=== PATIENT | female | born 1985 | race Caucasian/White ===

== ENCOUNTER → 2018-12-12 | Outpatient (REF) | payer OTHER | LOC: M SFHCPLAZ 19:25 | PROVIDERS: ATTEND Dermatology | DX: D22.62 Melanocytic nevi of left upper limb, including shoulder (principal) ==

== ENCOUNTER → 2019-11-25 | Outpatient (CLI) | payer OTHER ==
--- NOTE | 2019-12-17 15:12 | REP ---
LEFT WRIST SERIES CLINICAL: Contusion. Pain with recent fall. TECHNIQUE: AP, lateral, and bilateral oblique views of the left wrist. FINDINGS: Oblique and lateral views demonstrate a somewhat fragmented appearance involving probably the pisiform bone along the posterior aspect of the wrist. This may represent acute versus chronic fracture/injury and requires correlation with physical examination and mechanism of injury. Examination is otherwise unremarkable. The remainder of the carpal bones appear intact. The remainder of the visualized osseous structures are normal. The surrounding soft tissues are gross unremarkable. IMPRESSION: Cannot exclude acute versus chronic injury along the posterior aspect of the wrist likely involving the pisiform bone. This may represent an old injury or acute injury and correlation is required. SIMONED
== END ==
LOC: M WUC 10:42
PROVIDERS: ATTEND Physician Assistant
DX: S60.212A Contusion of left wrist, initial encounter (principal); X58.XXXA Exposure to other specified factors, initial encounter; Y92.89 Other specified places as the place of occurrence of the external cause

== ENCOUNTER → 2020-11-12 | Outpatient (CLI) | payer OTHER ==
--- NOTE | 2020-11-18 09:19 | REP ---
INDICATION: PERSON CONSULTING FOR EXPLANATION OF EXAM OR TEST FINDING COMPARISON: None. TECHNIQUE: Supine view of the abdomen and pelvis. FINDINGS: Bowel gas pattern is nonspecific and without obstruction or perforation. No organomegaly. No foreign body. Small calcifications in the pelvis likely represent phleboliths. Skeletal structures intact. IMPRESSION: Normal abdominal radiograph. <Electronically signed by Erich Costa > 11/18/20 0916
== END ==
LOC: M LAB 16:20
PROVIDERS: ATTEND Nurse Practitioner Family
DX: R19.7 Diarrhea, unspecified (principal); R10.9 Unspecified abdominal pain; Z71.2 Person consulting for explanation of examination or test findings

== ENCOUNTER → 2020-11-18 | Outpatient (REF) | payer OTHER ==
[~2020-11-18] MED LIST: CLAR10CA3 PO; CVS1CAP2 PO; PROAAER10 INH; [UNRECOGNIZED DRUG - OTHER] PO
== END ==
LOC: M LAB REF 15:22
PROVIDERS: ATTEND Nurse Practitioner Family
DX: R19.7 Diarrhea, unspecified (principal); R10.9 Unspecified abdominal pain

== ENCOUNTER → 2021-01-08 | Outpatient (CLI) | payer OTHER | LOC: M LABSMTC 10:31 | PROVIDERS: ATTEND Anesthesiology | DX: Z01.812 Encounter for preprocedural laboratory examination (principal); Z20.822 Contact with and (suspected) exposure to COVID-19 ==

== ENCOUNTER 2021-01-13 10:38 | Day surgery (SDC) | payer OTHER ==
[~2021-01-13] VITALS: Ht 157.5 cm; Wt 58.9 kg
[~2021-01-13 10:38] MED LIST changes: +NS 1,000 ML IV ONE
--- OUTSIDE RECORDS SUMMARY | 2021-01-13 10:42 | CCD | Continuity of Care Document ---
Author Author Hetal SILVA V [facility] Organization Unknown Address [address] [place] [address] Phone [phone] Care Team Providers Care Vat Skimmer Name Role Phone Kaylee Silva PASCALE AUTM [phone] Problems Description No Information Available Social History Type Date Description Comments Sex Unknown Tobacco Use Start: Unknown Never Used Smokeless Tobacco ETOH Use Denies alcohol use Tobacco Use Start: Unknown Patient has never smoked Recreational Drug Use Never Used Drugs Seat Belt/Car Seat Always uses seat belt Guns in Home No Smoke Alarms Yes Smoke Alarms Carbon Monoxide Detector: Yes Allergies, Adverse Reactions, Alerts Active Allergies Criticality Reaction | Severity Comments Date Peanut-containing Drug Products Unable to assess criticality Allergic asthma, Anaphylaxis 09/28/2020 Cat Dander Unable to assess criticality Allergic asthma, Contact dermatitis 09/28/2020 Seasonal Unable to assess criticality Allergic asthma, Contact dermatitis 09/28/2020 Iodine I 131 Tositumomab Unable to assess criticality Contact derma titis 09/28/2020 Nuts Unable to assess criticality Allergic as thma, Anaphylaxis, Contact dermatitis 09/28/2020 Cefaclor Unable to assess criticality 12/03/2020 Medications Active Medications SIG Qnty Indications Ordering Provide r Date Benzonatate 100mg Capsules take 1 cap by mouth every 8 hours as needed for cough 30jaz Johnston MD 12/03/2020 Esomeprazole Magnesium 40mg Capsul es DR 1 by mouth every day, take 1/2 hour before largest meal of day 30jaz Johnston MD 11/12/2020 Ergocalciferol 1.25mg (73696 Ut) C apsules take 1 cap by mouth once a week as directed 12jaz Johnston MD 10/21/2020 Benadryl Allergy 25mg Tablets As needed Unknown Probiotic 250mg Capsules 2 da bhanu Unknown Sudafed 30mg Tablets As neede d [facility] Albuterol Sulfate (2 .5mg/3ML) 0.083% Nebulizer As needed [facility], [facility] Epinephrine 0.3mg/0. 3ML Solution Auto-Inject Unknown Immunizations Description No Information Available Vital Signs Date Vital Result Comment 12/03/2020 1:54pm BP Systolic 106 mmHg BP Diastolic 56 mmHg Heart Rate 93 /min Body Temperature 97.3 F Respiratory Rate 16 /min O2 % BldC Oximetry 100 % Weight 127.50 lb Weight 57.834 kg Height 62 inches 5'2" BMI (Body Mass Index) 23.3 kg/m2 BSA (Body Surface Area) 1.58 m2 11/12/2020 2:35pm BP Systolic 116 mmHg BP Diastolic 72 mmHg Heart Rate 71 /min Body Temperature 97.2 F Respiratory Rate 16 /min O2 % BldC Oximetry 98 % Weight 129.25 lb Weight 58.628 kg Height 62 inches 5'2" BMI (Body Mass Index) 23.6 kg/m2 BSA (Body Surface Area) 1.59 m2 Results Test Acquired Date Facility Test Result H/L Range Note Laboratory test finding 12/03/2020 [facility] Coronavirus Covid-19 Not Detected Not Detected 1 Laboratory test finding 11/12/2020 [facility] Coronavirus Covid-19 Not Detected Not Detected 2 CBC W/Automated Diff 10/19/2020 [facility] CBC W/Automated Diff (SEE NOTE) 3, 4 WBC 8.3 10^3/uL 4.2 - 11.0 RBC 4.51 10^6/uL 4.20 - 5.40 Hemoglobin 15.0 g/dL 12.0 - 16.0 Hematocrit 44.8 % 37.0 - 47.0 MCV 99.3 fL 81.0 - 101 MCH 33.3 pg 27.0 - 34.0 MCHC 33.5 g/dL 31.0 - 36.0 RDW 12.4 % 11.5 - 14.5 Platelets 300 10^3/uL 150 - 450 MPV 10.1 fL 7.4 - 10.4 Neut 48.7 % 37.0 - 80.0 Lymph 41.0 % High 25.0 - 40.0 [place] 6.7 % 3.0 - 8.0 Eos 2.9 % 0.0 - 7.0 Baso 0.5 % 0.0 - 2.5 %Ig 0.2 % High 0.0 - 0.0 %NRBC 0.0 % 0.0 - 0.0 #Neut 4.06 10^3/uL 2.00 - 6.90 #Lymph 3.42 10^3/uL High 0.60 - 3.40 #[place] 0.56 10^3/uL 0.00 - 0.90 #Eos 0.24 10^3/uL 0.00 - 0.70 #Baso 0.04 10^3/uL 0.00 - 0.20 #Ig 0.02 10^3/uL 0.00 - 0.10 #NRBC 0.00 10^3/uL 0.00 - 0.00 Manual Diff NOT INDICATED RBC Morph NOT INDICATED Comprehensive Metabolic Panel 10/19/2020 [facility] Comprehensive Metabo (SEE NOTE) 5 Sodium 141 mEq/L 134 - 153 Potassium 4.2 mEq/L 3.6 - 5.0 Chloride 107 mEq/L 98 - 107 Co2 26 mEq/L 22 - 30 Glucose 91 mg/dL 70 - 99 BUN 16 mg/dL 7 - 21 Creatinine 0.9 mg/dL 0.7 - 1.5 BUN/Creat 18 8 - 27 Total Protein 7.3 g/dL 6.3 - 8.2 Albumin 4.3 g/dL 3.9 - 5.0 Globulin 3.0 GM/DL 2.4 - 3.2 A/G Ratio 1.4 0.8 - 2.0 Calcium 9.3 mg/dL 8.4 - 10.2 Total Bili <0.7 mg/dL 0.2 - 1.3 Alkaline Phos 67 U/L 38 - 126 Sgot/Ast 19 U/L 5 - 40 SGPT/Alt 20 U/L 7 - 56 Anion Gap 8.0 mmol/L 8.0 - 16.0 Age 35 yrs Non-Aa GFR >60 mL/min Afr Amer GFR >60 mL/min 6 Cve Panel 10/19/2020 [facility] Cve Panel (SEE NOTE) 7 Cholesterol 205 mg/dL High 131 - 200 Triglycerides 66 mg/dL 35 - 160 HDL 77 mg/dL 29 - 86 LDL 128 mg/dL 65 - 175 Risk Factor 2.7 Low 3.2 - 4.4 LDL/HDL 1.66 1.47 - 3.22 8 Laboratory test finding 10/19/2020 [facility] Hg[facility] 4.5 % 4.4 - 6.1 9 TSH Highly Sensitive 0.72 uIU/mL 0.47 - 5.01 Vitamin D (25-Hydroxy) 29 NG/ML 10 FSH Serum 5.6 mIU/mL 11 LH 8.2 mIU/mL 12 Estradiol Serum 153.0 pg/mL 13 T-Tranglutaminase Iga <2 U/mL 0-3 14 1 This nucleic acid amplificat ion test was developed and its performance characteristics determined by [employer]. Nucleic acid amplification tests include RT-PCR and TMA. This test has not been FDA cleared or approved. This test has been authorized by FDA under an Emergency Use Authorization (EUA). This test is only authorized for the duration of time the declaration that circumstances exist justifying the authorization of the emergency use of in vitro diagnostic tests for detection of SARS-CoV-2 virus and/or diagnosis of COVID-19 infection under section 564(b)(1) of the Act, 21 U.S.C. 360bbb-3(b) (1), unless the authorizatio n is terminated or revoked sooner. When diagnostic testing is negative, the possibility of a false negative result should be considered in the context of a patient's recent exposures and the presence of clinical signs and symptoms consistent with COVID-19. An individual without symptoms of COVID-19 and who is not shedding SARS-CoV-2 virus would expect to have a negative (not detected) result in this assay. 2 This nucleic acid amplificat ion test was developed and its performance characteristics determined by [employer]. Nucleic acid amplification tests include RT-PCR and TMA. This test has not been FDA cleared or approved. This test has been authorized by FDA under an Emergency Use Authorization (EUA). This test is only authorized for the duration of time the declaration that circumstances exist justifying the authorization of the emergency use of in vitro diagnostic tests for detection of SARS-CoV-2 virus and/or diagnosis of COVID-19 infection under section 564(b)(1) of the Act, 21 U.S.C. 360bbb-3(b) (1), unless the authorizatio n is terminated or revoked sooner. When diagnostic testing is negative, the possibility of a false negative result should be considered in the context of a patient's recent exposures and the presence of clinical signs and symptoms consistent with COVID-19. An individual without symptoms of COVID-19 and who is not shedding SARS-CoV-2 virus would expect to have a negative (not detected) result in this assay. 3 Is patient fasting? Y 4 COMPLETE BLOOD COUNT 5 COMPREHENSIVE METABOLIC PANE L 6 Male GFR Interprentation 20-49 yrs >60 mL/min Normal 50-59 yrs >56 mL/min Normal 60-69 yrs >49 mL/min Normal 70-79yrs >42 mL/min Normal 80 and above >35 mL/min Normal Female GFR Interpretation 20-39 yrs >60 mL/min Normal 40-49 yrs >58 mL/min Normal 50-59 yrs >51 mL/min Normal 60-69 yrs >45 mL/min Normal 70-79 yrs >39 mL/min Normal 80 and above >32 mL/min Normal 7 LIPID PANEL 8 CVE RISK CHOL/HDL LDL/HDL MEN: 1/2 AVERAGE 3.43 1.00 AVERAGE 4.97 3.55 2X AVERAGE 9.55 6.25 3X AVERAGE 23.99 7.99 WOMEN: 1/2 AVERAGE 3.27 1.47 AVERAGE 4.44 3.22 2X AVERAGE 7.05 5.03 3X AVERAGE 11.04 6.14 9 {A1] {HB] 10 VITAMIN-D(25HYDROXY) Deficiency: <=20 ng/ml Insufficiency: 21-29 ng/ml Preferred level: => 30 ng/ml 11 Adult Female: Follicular phase 3.5 - 12.5 Ovulation phase 4.7 - 21.5 Luteal phase 1.7 - 7.7 Postmenopausal 25.8 - 134.8 12 Adult Female: Follicular phase 2.4 - 12.6 Ovulation phase 14.0 - 95.6 Luteal phase 1.0 - 11.4 Postmenopausal 7.7 - 58.5 13 Adult Female: Follicular phase 12.5 - 166.0 Ovulation phase 85.8 - 498.0 Luteal phase 43.8 - 211.0 Postmenopausal <6.0 - 54.7 1st trimester 215.0 - >4300.0 Arian ECLIA methodology 14 Negative 0 - 3 Weak Positive 4 - 10 Positive >10 Tissue Transglutaminase (tTG) has been identified as the endomysial antigen. Studies have demonstr- ated that endomysial IgA antibodies have over 99% specificity for gluten sensitive enteropathy. Procedures Date Code Description Status 12/03/2020 33922 Office/Outpatient Established Mo d MDM 30-39 Min Completed 11/12/2020 32420 Office/Outpatient Established Mo d MDM 30-39 Min Completed 10/21/2020 74832 Office/Outpatient Established SF MDM 10-19 Min Completed 10/16/2020 24630 Office/Outpatient New Low MDM 30 -44 Minutes Completed 10/16/2020 30225 Admin Patient Focused Health Ris k Assessment Instrument Completed 10/16/2020 39476 Brief Emotional/Beha v Assessment W/ Scoring Doc Per Standard Inst Completed Medical Devices Description No Information Available Encounters Type Date Location Provider Dx Diagnosis Office Visit 12/03/2020 1:40p [facility] Kaylee pike, [facility] R10.9 Unspecified abdominal pain R19.7 Diarrhea, unspecified R05 Cough Assessments Date Code Description Provider 12/03/2020 R10.9 Unspecified abdominal pain Kaylee Silva, [facility] 12/03/2020 R19.7 Diarrhea, unspecified Kaylee Nevi lls, [facility] 12/03/2020 R05 Cough Kaylee Silva, F [employer] 11/12/2020 R19.7 Diarrhea, unspecified Kaylee Nevi lls, [facility] 11/12/2020 R10.9 Unspecified abdominal pain Kaylee Silva, [facility] 11/12/2020 Z13.220 Encounter for screening for lipo id disorders Kaylee Silva, [facility] 11/12/2020 Z00.01 Encounter for genera l adult medical examination with abnormal findings Kaylee Silva, [facility] 11/12/2020 Z13.29 Encounter for screen ing for other suspected endocrine disorder Kaylee Silva, [facility] 11/12/2020 Z20.828 Contact with and (martinez spected) exposure to other viral communicable diseases Kaylee Silva, [facility] 11/12/2020 Z71.2 Person consulting fo r explanation of examination or test findings Kaylee Silva [facility] 10/21/2020 J45.909 Unspecified asthma, uncomplicate d Kaylee Silva, [facility] 10/21/2020 E78.00 Pure hypercholesterolemia, unspe cified Kaylee Silva, [facility] 10/21/2020 E55.9 Vitamin D deficiency, unspecifie d Kaylee Silva, [facility] 10/21/2020 Z71.2 Person consulting fo r explanation of examination or test findings Kaylee Silva, [facility] 10/19/2020 J45.909 Unspecified asthma, uncomplicate d Kaylee Silva, [facility] 10/19/2020 Z00.01 Encounter for genera l adult medical examination with abnormal findings [facility] 10/19/2020 Z13.29 Encounter for screen ing for other suspected endocrine disorder [facility] 10/19/2020 Z13.220 Encounter for screening for lipo id disorders [facility] 10/16/2020 Z00.01 Encounter for genera l adult medical examination with abnormal findings Kaylee Ricardo, [facility] 10/16/2020 Z13.220 Encounter for screening for lipo id disorders Kaylee Ricardo, [facility] 10/16/2020 Z13.29 Encounter for screen ing for other suspected endocrine disorder Kaylee Freireshelby, [facility] 10/16/2020 J45.909 Unspecified asthma, uncomplicate d Kaylee Silva, [facility] 10/16/2020 Z12.4 Encounter for screening for geoff gnant neoplasm of cervix Kayleearetha Silva, [facility] 10/16/2020 R19.4 Change in bowel habit PASCALE Loaiza Plan of Treatment Future Appointment(s):* 04/30/2021 11:20 am - PASCALE Todd at [facility] * [facility] 12/03/2020 - PASCALE Todd* R10.9 Unspecified abdominal pain* Comments:* Symptoms resolved on their own.Her KUB exam dated 11/12/20 showed normal abdominal radiograph.Her GI panel dated 11/19/20 was positive for Enteropathogenic E. coli.To FU with GI as scheduled for her intermittent abdominal pain and other GI issues.We will continue to monitor. * R19.7 Diarrhea, unspecified* Comments:* Symptoms resolved on their own.Her KUB exam dated 11/12/20 showed normal abdominal radiograph.Her GI panel dated 11/19/20 was positive for Enteropathogenic E. coli.To FU with GI as scheduled for her intermittent abdominal pain and other GI issues.We will continue to monitor. * R05 Cough* Comments:* To have COVID-19 test done to evaluate further.Further plans to follow the lab result.To start Tessalon Perles 100 mg 1 cap PO Q8hrs PRN for cough.We will continue to monitor. * Follow up:* RTC for persistent or worsening symptoms. RTC as scheduled in April for a follow up visit with fasting labs 1 week prior. 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 Sent [address] [place] [address] [phone] Tor Bee MD Patient requesting referr al to GI for " inconsistent bowels". States was previously diagnosed with Gluten Intolerance. Sent 12/15/2020 [address] [place] [address] [phone]
--- OUTSIDE RECORDS SUMMARY | 2021-01-13 10:42 | CCD | Continuity of Care Document ---
Author Author [facility] Organization [facility] Address Unknown Phone Unavailable Care Team Providers Care Pattern Mechanic Name Role Phone Kaylee Sanchez MD Unavailable Unavailable Allergies, Adverse Reactions, Alerts Substance Reaction Status Criticality gluten Active No Information peanut AnaphylaxisWh eezing Active No Information cat dander Active No Information IODINE Active No Information Medications Medication Instructions Dosage Effective Dates (start - stop) Sta tus Comments Benadryl Allergy 25 mg tablet - Active MAGNESIUM (unknown strength) Not Available - Acti ve TURMERIC (unknown strength) Not Available - Activ e Claritin 10 mg tablet - Active Problems Condition Effective Dates (start - stop) Clinical Status C omments Body mass index (BMI) 28.0-28.9, adult - Other fatigue Unspecified abdominal pain Encounter for test, result negative Encounter for oth general cnsl and advice on contraception Encntr screen for infections w sexl mode of transmiss Human immunodeficiency virus [HIV] counseling Other sex counseling Pelvic and perineal pain Generalized abdominal pain Other fatigue Pelvic and perineal pain Encounter for test, result negative Other sex counseling Human immunodeficiency virus [HIV] counseling Encounter for oth general cnsl and advice on contraception Encntr for mold chipper exam (general) (routine) w/o abn findings Enctr srvlnc implantable subdermal contraceptive Encounter for oth general cnsl and advice on contraception Other sex counseling Encounter for prescription of emergency contraception Human immunodeficiency virus [HIV] counseling Other sex counseling Encounter for oth general cnsl and advice on contraception Encntr for mold chipper exam (general) (routine) w/o abn findings Enctr srvlnc implantable subdermal contraceptive Encounter for test, result negative Other sex counseling Encounter for oth general cnsl and advice on contraception Enctr for init prescription of implntbl subdermal contracep Other sex counseling Encounter for oth general cnsl and advice on contraception Encounter for test, result negative Encounter for surveillance of contraceptive pills Encounter for screening for human papillomavirus (HPV) Encntr for mold chipper exam (general) (routine) w/o abn findings Other sex counseling High risk heterosexual behavior Encounter for oth general cnsl and advice on contraception Encounter for surveillance of contraceptive pills Human immunodeficiency virus [HIV] counseling Human immunodeficiency virus [HIV] counseling Encntr screen for infections w sexl mode of transmiss High risk heterosexual behavior Encounter for surveillance of contraceptive pills Encntr for mold chipper exam (general) (routine) w/o abn findings HIV Counseling HIV, Screening STI Counseling STI Screening Genital Itching Vaginal Discharge Yeast-vulvovaginal Nocturia Polyuria Family Planning Counseling Procedures Procedure Date No Information Results Test Name Date and Time Measure Units Reference Range Abnormal Flag St atus Comments No Information Advance Directives Directive Yes / No Effective Date File Name No Information Encounters Encounter Description Practice Location Reason(s) For Visit Diagnose s Date Provider Providers Copied on Encounter [facility], [address] [place] [address], [address] [place] [address], tel:[phone] [facility]awn No Information Daniel Page. [address] [place] [address], [id number], . tel:[phone] [facility], [address] [place] [address], [id number], tel:[phone] [facility] Other fatigueUnspecified a bdominal pain Dwello Karley Francois. [address] [place], [place], [id number], . tel:[phone] [facility], [address] [place] [address], [id number], tel:[phone] [facility] Encounter for pregn azalia test, result negativeEncounter for oth general cnsl and advice on contraceptionEncntr screen for infections w sexl mode of transmissHuman immunodeficiency virus [HIV] counselingOther sex counselingPelvic and perineal pain Clayton Ross. [address] [place], [place], [id number], [place]. tel:[phone] Referring Provider: Ana Rosa Arnold, [address] [place], [place], [id number]. tel:[phone] [facility], [address] [place] [address], [id number], [place] tel:[phone] [facility] Generalized abdomin al painOther fatiguePelvic and perineal pain Dwello Karley Francois. [address] [place], [place], [id number], [place]. tel:[phone] Referring Provider: Karley Rivas, [address] [place] [address], [id number]. tel:[phone] [facility], [address] [place] [address], [id number], [place] tel:[phone] [facility] Encounter for pregn azalia test, result negativeOther sex counselingHuman immunodeficiency virus [HIV] counselingEncounter for oth general cnsl and advice on contraceptionEncntr for mold chipper exam (general) (routine) w/o abn findings Lisa Fox. [address] [place] [address], [id number], [place]. tel:[phone] Referring Provider: Carin Velazquez, [address] [place], [place], [id number]. tel:[phone] [facility], [address] [place] [address], [id number], [place] tel:[phone] [facility] Enctr srvlnc implan table subdermal contraceptiveEncounter for oth general cnsl and advice on contraceptionOther sex counselingEncounter for prescription of emergency contraception Evelyn Francois. [address] [place] [address], [id number], [place]. tel:[phone] Referring Provider: Karley Rivas, [address] [place] [address], [id number]. tel:[phone] [facility], [address] [place] [address], [id number], [place] tel:[phone] [facility] Human immunodeficie ncy virus [HIV] counselingOther sex counselingEncounter for oth general cnsl and advice on contraceptionEncntr for mold chipper exam (general) (routine) w/o abn findingsEnctr srvlnc implantable subdermal contraceptiveBody mass index (BMI) 28.0-28.9, adult Marcus Del Rosario. [address] [place] [address], [id number], [place]. tel:[phone] Referring Provider: Carin Velazquez, [address] [place], [place], [id number]. tel:[phone] [facility], [address] [place] [address], [address] [place] [address], [place] tel:[phone] [facility] Encounter for pregn azalia test, result negativeOther sex counselingEncounter for oth general cnsl and advice on contraceptionEnctr for init prescription of implntbl subdermal contracep Lisa Fox. [address] [place] [address], [id number], . tel:[phone] Referring Provider: Dominique Gonzalez, [address] [place], [place], [id number]. tel:[phone] [facility], [address] [place] [address], [id number], [place] tel:[phone] [facility] Other sex counselin gEncounter for oth general cnsl and advice on contraceptionEncounter for test, result negativeEncounter for surveillance of contraceptive pills Marcus Del Rosario. [address] [place] [address], [id number], . tel:[phone] Referring Provider: Carin Velazquez, [address] [place] [address], [id number]. tel:[phone] [facility], [address] [place] [address], [id number], [place] tel:[phone] [facility] Encounter for felipa lundy for human papillomavirus (HPV)Encntr for mold chipper exam (general) (routine) w/o abn findingsOther sex counselingHigh risk heterosexual behaviorEncounter for oth general cnsl and advice on contraceptionEncounter for surveillance of contraceptive pillsHuman immunodeficiency virus [HIV] counseling Marcus Del Rosario. [address] [place] [address], [id number], [place]. tel:[phone] Referring Provider: Carin Velazquez, [address] [place], [place], [id number]. tel:[phone] [facility], [address] [place] [address], [address] [place] [address], [place] tel:[phone] STACY [facility] Human immunodeficie ncy virus [HIV] counselingEncntr screen for infections w sexl mode of transmissHigh risk heterosexual behaviorEncounter for surveillance of contraceptive pillsEncntr for mold chipper exam (general) (routine) w/o abn findings De henry Mendenhall. [address] [place] [address], [id number], [place]. tel:[phone] Referring Provider: Za Parker, [address] [place] [address], [id number]. tel:[phone] [facility], [address] [place] [address], [id number], [place] tel:[phone] [facility] HIV CounselingHIV, ScreeningSTI CounselingSTI ScreeningGenital ItchingVaginal DischargeYeast- vulvovaginalNocturiaPolyuriaFamily Planning Counseling Zitahenry Mendenhall. [address] [place] [address], [id number], [place]. tel:[phone] Family History Family Member Diagnosis Age At Onset No family history of Myocardial infarcti on No family history of Stroke Father Multiple myeloma 1st degree relative No hx of coronary heart disease (female <65, male <55) 1st degree relative No hx of cancer of breast, colon, endome trium or ovary 1st degree relative No hx of venous thromboembolism Father Diabetes mellitus Paternal grandmother Cancer, skin Maternal grandfather Alcoholism Maternal grandmother Alzheimer's disease Paternal grandfather Alcoholism Mother High cholesterol Father Hypertension Immunizations Vaccine Date Status Comments tetanus toxoid, adsorbed administered Source: Other Provider measles, mumps and rubella virus vaccine adminis tered Source: Other Provider hepatitis A and hepatitis B vaccine administered Source: Other Provider Payers Payer name Insurance type Covered green party ID Authorization(s ) [facility] [id number] Social History Type Description Quantity Date Captured Comments Alcohol Use Details Unknown Caffeine Use Details Unknown Tobacco Use Status No Information Smoking Status Never smoker Sex Female Vital Signs Date / Time: Height Weight BMI Pulse Rate Blood Pressure Temperatu re Respiratory Rate Body Surface Area Head Circumference BMI percentile Pulse Ox In haled Ox No Information Chief Complaint And Reason For Visit No Information Reason For Referral Reason For Referral No Information Plan Of Treatment Date Type Action Status Goal Dietary management education, gu idance, and counseling completed Referral Ordered: Referrals: Primary Care Provider. Assume care Appointment date/timeframe: 3 Months ordered History Of Present Illness Encounter Date Complaint History Of Present I llness No Information Functional Status Date Functional Assessment No Information Medications Administered Medication Instructions Dosage Effective Dates (start - stop) Sta tus Comments No Information Instructions Date Instruction Additional Informati on Dietary management education, guidance, and counseling Related to Body mass index (BMI) 28.0-28.9, adult Assessments Type Assessment Date No Information Goals Health Concern Goal Type Priority Status Date No Information Medical Equipment Description Device [place] Device Identifier Effective Adrian es (start - stop) Status No Information Mental Status Date Cognitive Assessment No Information Health Concerns Observation Date No Information Concern Status Date No Information Physical Examination Exam Findings Details No Information
--- OUTSIDE RECORDS SUMMARY | 2021-01-13 10:42 | CCD | Continuity of Care Document ---
Author Author Hetal BEE M.D. 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 Onset: Social History Type Date Description Comments Sex Unknown ETOH Use Denies alcohol use Tobacco Use Start: Unknown Patient has never smoked Allergies, Adverse Reactions, Alerts Active Allergies Criticality Reaction | Severity Comments Date Iodine I-131 Unable to assess criticality 11/17/2020 Cefaclor Unable to assess criticality 11/17/2020 Medications Active Medications SIG Qnty Indications Ordering Provide r Date Cipro 500mg Tablets 1 tab by mouth twice a day 6tabs Tor Bee M.D. 021 [place] [id number] Tablets as directed 1box Tor Bee M.D. 11/17/2020 Epinephrine 0.3mg/0. 3ML Solution Auto-Inject Unknown Multi Vitamin Tablets Unknown Benadryl Allergy 25mg Tablets 2 tabs [address] scan Unknown Immunizations Description No Information Available Vital Signs Date Vital Result Comment 11/17/2020 9:55am Height 62 inches 5'2" Weight 126.00 lb BP Systolic 110 mmHg BP Diastolic 67 mmHg Heart Rate 76 /min BMI (Body Mass Index) 23.0 kg/m2 Weight 57.154 kg Body Temperature 96.8 F Results Description No Information Available Procedures Date Code Description Status 11/17/2020 10150 Office/Outpatient New Low [facility] 30 -44 Minutes Completed Medical Devices Description No Information Available Encounters Type Date Location Provider Dx Diagnosis Office Visit 11/17/2020 9:45a Main Office Tor Bee M.D. K 58.0 Irritable bowel syndrome with diarrhea Assessments Date Code Description Provider 11/17/2020 K58.0 Irritable bowel syndrome Tor Bee M.D. Plan of Treatment Future Appointment(s):* 12/30/2020 7:15 am - [facility] at Main Office * 01/13/2021 8:00 am - Tor Bee M.D. at Main Office 11/17/2020 - Tor Bee M.D.* K58.0 Irritable bowel syndrome* Comments: * 35 yo wf who presents for a colonoscopy/egd due to a h/o diarrhea, abdominal bloating, irregular bowel habits, and urgency. This started over the last 6 months. No c/o rectal bleeding. No weight loss. Plan:1. Colonoscopy + egd.+ ileoscopy.2. Informed consent Functional Status Description No Information Available Mental Status Description No Information Available Referrals Description No Information Available
--- OUTSIDE RECORDS SUMMARY | 2021-01-13 10:42 | CCD | Continuity of Care Document ---
Author Author Hetal SILVA V [facility] Organization Unknown Address [address] [place] [address] Phone [phone] Care Team Providers Care Biomass Power Plant Superintendent Name Role Phone Kaylee Silva PASCALE AUTM [phone] Problems Description No Information Available Social History [...] day 30jaz Johnston MD 11/12/2020 Ergocalciferol 1.25mg (49536 Ut) C apsules take 1 cap by mouth once a week as directed 12jaz Johnston MD 10/21/2020 Benadryl Allergy 25mg Tablets As needed Unknown Probiotic 250mg Capsules 2 da bhanu Unknown Sudafed 30mg Tablets As neede d [facility] Albuterol Sulfate (2 .5mg/3ML) 0.083% Nebulizer As needed [facility], [facility] Epinephrine 0.3mg/0. 3ML Solution Auto-Inject Unknown Immunizations [...] H/L Range Note Laboratory test finding 12/03/2020 [facility] Coronavirus Covid-19 Not Detected Not Detected 1 Laboratory test finding 11/12/2020 [facility] Coronavirus Covid-19 Not Detected Not Detected 2 CBC W/Automated Diff 10/19/2020 [facility] CBC W/Automated Diff (SEE NOTE) 3, 4 [...] Lymph 41.0 % High 25.0 - 40.0 [place] 6.7 % 3.0 - 8.0 Eos 2.9 % 0.0 - 7.0 Baso 0.5 % 0.0 - 2.5 %Ig 0.2 % High 0.0 - 0.0 %NRBC 0.0 % 0.0 - 0.0 #Neut 4.06 10^3/uL 2.00 - 6.90 #Lymph 3.42 10^3/uL High 0.60 - 3.40 #Reno 0.56 10^3/uL 0.00 - 0.90 #Eos 0.24 10^3/uL 0.00 - 0.70 #Baso 0.04 10^3/uL 0.00 - 0.20 #Ig 0.02 10^3/uL 0.00 - 0.10 #NRBC 0.00 10^3/uL 0.00 - 0.00 Manual Diff NOT INDICATED RBC Morph NOT INDICATED Comprehensive Metabolic Panel 10/19/2020 [facility] [place] [employer] Comprehensive Metabo (SEE NOTE) 5 Sodium 141 [...] GFR >60 mL/min 6 Cve Panel 10/19/2020 [facility] Cve Panel (SEE NOTE) 7 Cholesterol 205 mg/dL High 131 - 200 Triglycerides 66 mg/dL 35 - 160 HDL 77 mg/dL 29 - 86 LDL 128 mg/dL 65 - 175 Risk Factor 2.7 Low 3.2 - 4.4 LDL/HDL 1.66 1.47 - 3.22 8 Laboratory test finding 10/19/2020 [facility] Hgba1[facility] 4.5 % 4.4 - 6.1 9 TSH Highly Sensitive 0.72 uIU/mL 0.47 - 5.01 Vitamin D (25-Hydroxy) 29 NG/ML 10 FSH Serum 5.6 mIU/mL 11 LH 8.2 mIU/mL 12 Estradiol Serum 153.0 pg/mL 13 T-Tranglutaminase Iga <2 U/mL 0-3 14 1 This nucleic acid amplificat ion test was developed and its performance characteristics determined by [employer]. Nucleic acid amplification tests include RT-PCR and [...] developed and its performance characteristics determined by [employer]. Nucleic acid amplification tests include RT-PCR and [...] enteropathy. Procedures Date Code Description Status 12/03/2020 35345 Office/Outpatient Established Mo d MDM 30-39 Min Completed 11/12/2020 62817 Office/Outpatient Established Mo d MDM 30-39 Min Completed 10/21/2020 52526 Office/Outpatient Established SF MDM 10-19 Min Completed 10/16/2020 72783 Office/Outpatient New Low MDM 30 -44 Minutes Completed 10/16/2020 84560 Admin Patient Focused Health Ris k Assessment Instrument Completed 10/16/2020 33947 Brief Emotional/Beha v Assessment W/ Scoring Doc Per Standard Inst Completed Medical Devices Description No Information Available Encounters Description No Information Available Assessments Date Code Description Provider 12/03/2020 R10.9 Unspecified abdominal pain Kaylee Silva, [facility] 12/03/2020 R19.7 Diarrhea, unspecified Kaylee Nevi lls, [facility] 12/03/2020 R05 Cough Kaylee Silva, F [employer] DIRECTOR 11/12/2020 R19.7 Diarrhea, unspecified Kaylee Nevi lls, [facility] 11/12/2020 R10.9 Unspecified abdominal pain Kaylee Silva, [facility] 11/12/2020 Z13.220 Encounter for screening for lipo id disorders Kaylee Silva, [facility] 11/12/2020 Z00.01 Encounter for genera l adult medical examination with abnormal findings Kaylee Silva, [facility] 11/12/2020 Z13.29 Encounter for screen ing for other suspected endocrine disorder Kaylee Silva, [facility] 11/12/2020 Z20.828 Contact with and (martinez spected) exposure to other viral communicable diseases Kaylee Silva, [facility] 11/12/2020 Z71.2 Person consulting fo r explanation of examination or test findings Kaylee Silva, [facility] 10/21/2020 J45.909 Unspecified asthma, uncomplicate d Kaylee Silva, [facility] 10/21/2020 E78.00 Pure hypercholesterolemia, unspe cified Kaylee Silva, [facility] 10/21/2020 E55.9 Vitamin D deficiency, unspecifie d Kaylee Silva, [facility] 10/21/2020 Z71.2 Person consulting fo r explanation of examination or test findings Kaylee Silva, [facility] 10/19/2020 J45.909 Unspecified asthma, uncomplicate d Kaylee Silva, [facility] 10/19/2020 Z00.01 Encounter for genera l adult medical examination [facility]2020 Z13.29 Encounter for screen ing for other suspected endocrine disorder [facility] 10/19/2020 Z13.220 Encounter for screening for lipo id disorders [facility] 10/16/2020 Z00.01 Encounter for genera l adult medical examination with abnormal findings Kaylee Silva, [facility] 10/16/2020 Z13.220 Encounter for screening for lipo id disorders Kaylee Silva, [facility] 10/16/2020 Z13.29 Encounter for screen ing for other suspected endocrine disorder Kaylee Silva, [facility] 10/16/2020 J45.909 Unspecified asthma, uncomplicate d Kaylee Silva, [facility] 10/16/2020 Z12.4 Encounter for screening for geoff gnant neoplasm of cervix Kaylee Ricardo, [facility] 10/16/2020 R19.4 Change in bowel habit PASCALE Loaiza Plan of Treatment Future Appointment(s):* 04/30/2021 11:20 am - PASCALE Todd at [facility] * 04/23/2021 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 Sent [address] [place] [address] [phone] Tor Bee MD Patient requesting referr al to GI for " inconsistent bowels". States was previously diagnosed with Gluten Intolerance. Closed 12/15/2020 [address] [place] [address] [phone]
--- OUTSIDE RECORDS SUMMARY | 2021-01-13 10:42 | CCD | Continuity of Care Document ---
Author Author Hetal SILVA V [facility] Organization Unknown Address [address] [place] [address] Phone [phone] Care Team Providers Care Mud Mill Tender Name Role Phone Kaylee Silva PASCALE AUTM [phone] Problems Description No Information Available Social History [...] day 30jaz Johnston MD 11/12/2020 Ergocalciferol 1.25mg (67623 Ut) C apsules take 1 cap by mouth once a week as directed 12jaz Johnston MD 10/21/2020 Benadryl Allergy 25mg Tablets As needed Unknown Probiotic 250mg Capsules 2 da bhanu Unknown Sudafed 30mg Tablets As neede d [facility] Albuterol Sulfate (2 .5mg/3ML) 0.083% Nebulizer As needed [facility], [facility] Epinephrine 0.3mg/0. 3ML Solution Auto-Inject Unknown [...] H/L Range Note Laboratory test finding 12/03/2020 [facility] Covid-19 <pending> Laboratory test finding 11/12/2020 [facility] Coronavirus Covid-19 Not Detected Not Detected 1 CBC W/Automated Diff 10/19/2020 [facility] CBC W/Automated Diff (SEE NOTE) 2, 3 WBC 8.3 10^3/uL 4.2 - 11.0 RBC [...] Lymph 41.0 % High 25.0 - 40.0 Gila 6.7 % 3.0 - 8.0 Eos 2.9 % 0.0 - 7.0 Baso 0.5 % 0.0 - 2.5 %Ig 0.2 % High 0.0 - 0.0 %NRBC 0.0 % 0.0 - 0.0 #Neut 4.06 10^3/uL 2.00 - 6.90 #Lymph 3.42 10^3/uL High 0.60 - 3.40 #Gila 0.56 10^3/uL 0.00 - 0.90 #Eos 0.24 10^3/uL 0.00 - 0.70 #Baso 0.04 10^3/uL 0.00 - 0.20 #Ig 0.02 10^3/uL 0.00 - 0.10 #NRBC 0.00 10^3/uL 0.00 - 0.00 Manual Diff NOT INDICATED RBC Morph NOT INDICATED Comprehensive Metabolic Panel 10/19/2020 [facility] Comprehensive Metabo (SEE NOTE) 4 Sodium 141 mEq/L 134 - 153 Potassium [...] >60 mL/min Afr Amer GFR >60 mL/min 5 Cve Panel 10/19/2020 [facility] Cve Panel (SEE NOTE) 6 Cholesterol 205 mg/dL High 131 - 200 Triglycerides 66 mg/dL 35 - 160 HDL 77 mg/dL 29 - 86 LDL 128 mg/dL 65 - 175 Risk Factor 2.7 Low 3.2 - 4.4 LDL/HDL 1.66 1.47 - 3.22 7 Laboratory test finding 10/19/2020 [facility] Hgba1c 4.5 % 4.4 - 6.1 8 TSH Highly Sensitive 0.72 uIU/mL 0.47 - 5.01 Vitamin D (25-Hydroxy) 29 NG/ML 9 FSH Serum 5.6 mIU/mL 10 LH 8.2 mIU/mL 11 Estradiol Serum 153.0 pg/mL 12 T-Tranglutaminase Iga <2 U/mL 0-3 13 1 This nucleic acid amplificat ion test was developed and its performance characteristics determined by [facility]. Nucleic acid amplification tests include RT-PCR and [...] (not detected) result in this assay. 2 Is patient fasting? Y 3 COMPLETE BLOOD COUNT 4 COMPREHENSIVE METABOLIC PANE L 5 Male GFR Interprentation 20-49 yrs >60 mL/min Normal 50-59 yrs >56 mL/min Normal 60-69 yrs >49 mL/min Normal 70-79yrs >42 mL/min Normal 80 and above >35 mL/min Normal Female GFR Interpretation 20-39 yrs >60 mL/min Normal 40-49 yrs >58 mL/min Normal 50-59 yrs >51 mL/min Normal 60-69 yrs >45 mL/min Normal 70-79 yrs >39 mL/min Normal 80 and above >32 mL/min Normal 6 LIPID PANEL 7 CVE RISK CHOL/HDL LDL/HDL MEN: 1/2 AVERAGE 3.43 1.00 AVERAGE 4.97 3.55 2X AVERAGE 9.55 6.25 3X AVERAGE 23.99 7.99 WOMEN: 1/2 AVERAGE 3.27 1.47 AVERAGE 4.44 3.22 2X AVERAGE 7.05 5.03 3X AVERAGE 11.04 6.14 8 {A1] {HB] 9 VITAMIN-D(25HYDROXY) Deficiency: <=20 ng/ml Insufficiency: 21-29 ng/ml Preferred level: => 30 ng/ml 10 Adult Female: Follicular phase 3.5 - 12.5 Ovulation phase 4.7 - 21.5 Luteal phase 1.7 - 7.7 Postmenopausal 25.8 - 134.8 11 Adult Female: Follicular phase 2.4 - 12.6 Ovulation phase 14.0 - 95.6 Luteal phase 1.0 - 11.4 Postmenopausal 7.7 - 58.5 12 Adult Female: Follicular phase 12.5 - 166.0 Ovulation phase 85.8 - 498.0 Luteal phase 43.8 - 211.0 Postmenopausal <6.0 - 54.7 1st trimester 215.0 - >4300.0 Arian ECLIA methodology 13 Negative 0 - 3 Weak Positive 4 - 10 Positive >10 Tissue Transglutaminase (tTG) has been identified as the endomysial antigen. Studies have demonstr- ated that endomysial IgA antibodies have over 99% specificity for gluten sensitive enteropathy. Procedures Date Code Description Status 12/03/2020 03987 Office/Outpatient Established Mo d MDM 30-39 Min Completed 11/12/2020 70988 Office/Outpatient Established Mo d MDM 30-39 Min Completed 10/21/2020 78504 Office/Outpatient Established SF MDM 10-19 Min Completed 10/16/2020 45660 Office/Outpatient New Low MDM 30 -44 Minutes Completed 10/16/2020 29427 Admin Patient Focused Health Ris k Assessment Instrument Completed 10/16/2020 16946 Brief Emotional/Beha v Assessment W/ Scoring Doc Per Standard Inst Completed Medical Devices Description No Information Available Encounters Type Date Location Provider Dx Diagnosis Office Visit 12/03/2020 1:40p [facility] DoP R10.9 Unspecified abdominal pain R19.7 Diarrhea, unspecified R05 Cough Assessments Date Code Description Provider 12/03/2020 R10.9 Unspecified abdominal pain Kaylee Nevills, [facility] 12/03/2020 R19.7 Diarrhea, unspecified Kaylee Nevi lls, FASHION DESIGNER 12/03/2020 R05 Cough Kaylee Nevills, F EGG TRAYER 11/12/2020 R19.7 Diarrhea, unspecified Kaylee Nevi lls, FASHION DESIGNER 11/12/2020 R10.9 Unspecified abdominal pain Kaylee Nevills, [facility] 11/12/2020 Z13.220 Encounter for screening for lipo id disorders Kaylee Nevills, [facility] 11/12/2020 Z00.01 Encounter for genera l adult medical examination with abnormal findings Kaylee Nevills, [facility] 11/12/2020 Z13.29 Encounter for screen ing for other suspected endocrine disorder Kaylee Nevills, [facility] 11/12/2020 Z20.828 Contact with and (martinez spected) exposure to other viral communicable diseases Kaylee Nevills, [facility] 11/12/2020 Z71.2 Person consulting fo r explanation of examination or test findings Kaylee Nevills, [facility] 10/21/2020 J45.909 Unspecified asthma, uncomplicate d Kaylee Nevills, [facility] 10/21/2020 E78.00 Pure hypercholesterolemia, unspe cified Kaylee Nevills, [facility] 10/21/2020 E55.9 Vitamin D deficiency, unspecifie d Kaylee Nevills, [facility] 10/21/2020 Z71.2 Person consulting fo r explanation of examination or test findings Kaylee Nevills, [facility] 10/19/2020 J45.909 Unspecified asthma, uncomplicate d Kaylee Nevills, [facility] 10/19/2020 Z00.01 [facility] for [facility] Z13.29 Encounter for screen ing for other suspected endocrine [facility]2020 Z13.220 [facility]counter for screening [facility]o [facility]16[facility]2020 Z00.01 Encounter for genera l adult medical examination with abnormal findings Kaylee Nevills, [facility] 10/16/2020 Z13.220 Encounter for screening for lipo id disorders Kaylee Silva, [facility] 10/16/2020 Z13.29 Encounter for screen ing for other suspected endocrine disorder Kaylee Silva, [facility] 10/16/2020 J45.909 Unspecified asthma, uncomplicate d Kaylee Silva, [facility] 10/16/2020 Z12.4 Encounter for screening for geoff gnant neoplasm of cervix Kaylee Silva, [facility] 10/16/2020 R19.4 Change in bowel habit Kaylee PASCALE Botello Plan of Treatment Future Appointment(s):* 04/30/2021 11:20 am - PASCALE Todd at [facility] * 04/23/2021 8:30 am - [facility] at [facility] 12/03/2020 - PASCALE Todd* R10.9 Unspecified abdominal [...] for Referral Status Appt Date 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 Sent [address] [place] [address] [phone] Tor Bee MD Patient requesting referr al to GI for " inconsistent bowels". States was previously diagnosed with Gluten Intolerance. Sent 12/15/2020 [address] [place] [address] [phone]
--- OUTSIDE RECORDS SUMMARY | 2021-01-13 10:43 | CCD | Continuity of Care Document ---
Author Author Hetal SILVA V [facility] Organization Unknown Address [address] [place] [address] Phone [phone] Care Team Providers Care Liquid Flavor Compounder Name Role Phone Kaylee Silva PASCALE AUTM [phone] Problems Description No Information Available Social History [...] Yes Allergies, Adverse Reactions, Alerts Active Allergies Reaction Severity Comments Date Peanut-containing Drug Products Allergic asthma, Anaphylaxis 09/28/2020 Cat Dander Allergic asthma, Contact dermatitis 09/28/2020 Seasonal Allergic asthma, Contact dermatitis 09/28/2020 Iodine I 131 T[place]ab Contact dermatitis 09/28/2020 Nuts Allergic asthma, Anaphylaxis, Contact dermatitis 09/28/2020 Medications Active Medications SIG Qnty Indications Ordering Provide r Date Ergocalciferol 1.25mg (34183 Ut) C apsules take 1 cap by mouth once a week as directed 12caps Eric Johnston MD 10/21/2020 Benadryl Allergy 25mg Tablets As needed Unknown Probiotic 250mg Capsules 2 da bhanu Unknown Sudafed 30mg Tablets As neede d [facility] Albuterol Sulfate (2 .5mg/3ML) 0.083% Nebulizer As needed [facility], [facility] Epinephrine 0.3mg/0. 3ML Solution Auto-Inject Unknown Immunizations Description No Information Available Vital Signs Date Vital Result Comment 10/16/2020 2:21pm BP Systolic 106 mmHg BP Diastolic 68 mmHg Heart Rate 70 /min Body Temperature 96.9 F Respiratory Rate 18 /min O2 % BldC Oximetry 99 % Weight 130.38 lb Weight 59.138 kg Height 62 inches 5'2" BMI (Body Mass Index) 23.8 kg/m2 BSA (Body Surface Area) 1.59 m2 Results Test Acquired Date Facility Test Result H/L Range Note CBC W/Automated Diff 10/19/2020 [facility] CBC W/Automated Diff (SEE NOTE) 1, 2 WBC 8.3 10^3/uL 4.2 - 11.0 RBC [...] Lymph 41.0 % High 25.0 - 40.0 Grundy 6.7 % 3.0 - 8.0 Eos 2.9 % 0.0 - 7.0 Baso 0.5 % 0.0 - 2.5 %Ig 0.2 % High 0.0 - 0.0 %NRBC 0.0 % 0.0 - 0.0 #Neut 4.06 10^3/uL 2.00 - 6.90 #Lymph 3.42 10^3/uL High 0.60 - 3.40 #Grundy 0.56 10^3/uL 0.00 - 0.90 #Eos 0.24 10^3/uL 0.00 - 0.70 #Baso 0.04 10^3/uL 0.00 - 0.20 #Ig 0.02 10^3/uL 0.00 - 0.10 #NRBC 0.00 10^3/uL 0.00 - 0.00 Manual Diff NOT INDICATED RBC Morph NOT INDICATED Comprehensive Metabolic Panel 10/19/2020 [facility] Comprehensive Metabo (SEE NOTE) 3 Sodium 141 mEq/L 134 - 153 Potassium [...] >60 mL/min Afr Amer GFR >60 mL/min 4 Cve Panel 10/19/2020 [facility] Cve Panel (SEE NOTE) 5 Cholesterol 205 mg/dL High 131 - 200 Triglycerides 66 mg/dL 35 - 160 HDL 77 mg/dL 29 - 86 LDL 128 mg/dL 65 - 175 Risk Factor 2.7 Low 3.2 - 4.4 LDL/HDL 1.66 1.47 - 3.22 6 Laboratory test finding 10/19/2020 [facility] Hgba1c 4.5 % 4.4 - 6.1 7 TSH Highly Sensitive 0.72 uIU/mL 0.47 - 5.01 Vitamin D (25-Hydroxy) 29 NG/ML 8 FSH Serum 5.6 mIU/mL 9 LH 8.2 mIU/mL 10 Estradiol Serum 153.0 pg/mL 11 1 Is patient fasting? Y 2 COMPLETE BLOOD COUNT 3 COMPREHENSIVE METABOLIC PANE L 4 Male GFR Interprentation 20-49 yrs >60 mL/min Normal 50-59 yrs >56 mL/min Normal 60-69 yrs >49 mL/min Normal 70-79yrs >42 mL/min Normal 80 and above >35 mL/min Normal Female GFR Interpretation 20-39 yrs >60 mL/min Normal 40-49 yrs >58 mL/min Normal 50-59 yrs >51 mL/min Normal 60-69 yrs >45 mL/min Normal 70-79 yrs >39 mL/min Normal 80 and above >32 mL/min Normal 5 LIPID PANEL 6 CVE RISK CHOL/HDL LDL/HDL MEN: 1/2 AVERAGE 3.43 1.00 AVERAGE 4.97 3.55 2X AVERAGE 9.55 6.25 3X AVERAGE 23.99 7.99 WOMEN: 1/2 AVERAGE 3.27 1.47 AVERAGE 4.44 3.22 2X AVERAGE 7.05 5.03 3X AVERAGE 11.04 6.14 7 {A1] {HB] 8 VITAMIN-D(25HYDROXY) Deficiency: <=20 ng/ml Insufficiency: 21-29 ng/ml Preferred level: => 30 ng/ml 9 Adult Female: Follicular phase 3.5 - 12.5 Ovulation phase 4.7 - 21.5 Luteal phase 1.7 - 7.7 Postmenopausal 25.8 - 134.8 10 Adult Female: Follicular phase 2.4 - 12.6 Ovulation phase 14.0 - 95.6 Luteal phase 1.0 - 11.4 Postmenopausal 7.7 - 58.5 11 Adult Female: Follicular phase 12.5 - 166.0 Ovulation phase 85.8 - 498.0 Luteal phase 43.8 - 211.0 Postmenopausal <6.0 - 54.7 1st trimester 215.0 - >4300.0 Arian ECLIA methodology Procedures Date Code Description Status 10/21/2020 26754 Office/Outpatient Established SF MDM 10-19 Min Completed 10/16/2020 98152 Office/Outpatient New Low MDM 30 -44 Minutes Completed 10/16/2020 83892 Admin Patient Focused Health Ris k Assessment Instrument Completed 10/16/2020 10235 Brief Emotional/Beha v Assessment W/ Scoring Doc Per Standard Inst Completed Medical Devices Description No Information Available Encounters Type Date Location Provider Dx Diagnosis Office Visit 10/21/2020 2:00p [facility] PASCALE Do J45.909 Unspecified asthma, uncomplicated E78.00 Pure hypercholesterolemia, u nspecified E55.9 Vitamin D deficiency, unspec ified Z71.2 Person consulting for explan ation of exam or test findings Assessments Date Code Description Provider 10/21/2020 J45.909 Unspecified asthma, uncomplicate d PASCALE Todd 10/21/2020 E78.00 Pure hypercholesterolemia, unspe cified PASCALE Todd 10/21/2020 E55.9 Vitamin D deficiency, unspecifie d Kaylee Silva, [facility] 10/21/2020 Z71.2 Person consulting fo r explanation of examination or test findings Kaylee Silva, [facility] 10/19/2020 J45.909 Unspecified asthma, uncomplicate d Kaylee Silva, [facility] 10/19/2020 Z00.01 Encounter for genera l adult medical examination with abnormal findings [facility] 10/19/2020 Z13.29 Encounter for screen ing for other suspected endocrine disorder [facility] 10/19/2020 Z13.220 Encounter for screening for lipo id disorders [facility] 10/16/2020 Z00.01 Encounter for genera l adult medical examination with abnormal findings Kaylee Silva, [facility] 10/16/2020 Z13.220 Encounter for screening for lipo id disorders Kaylee Silva, [facility] 10/16/2020 Z13.29 Encounter for screen ing for other suspected endocrine disorder Kaylee Ricardo, [facility] 10/16/2020 J45.909 Unspecified asthma, uncomplicate d Kaylee Silva, [facility] 10/16/2020 Z12.4 Encounter for screening for geoff gnant neoplasm of cervix Kaylee Ricardo, [facility] 10/16/2020 R19.4 Change in bowel habit Kaylee Multani s, PASCALE Plan of Treatment Future Appointment(s):* 04/30/2021 11:20 am - PASCALE Todd at [facility] * 04/23/2021 8:30 am - [facility] 10/21/2020 - Kaylee Silva [facility]* J45.909 Unspecified asthma, uncomplicated* Comments:* Currently stable.To continue current medication and plan of care.We will continue to monitor. * E78.00 Pure hypercholesterolemia, unspecified* Comments:* Labs reviewed with the patient in detail.Lipid panel showed:CHOL high at 205.TRG at 66.HDL at 77.LDL at 128.She was encouraged to maintain a low cholesterol diet and a regular exercise regimen. We will continue to monitor. Total Cholesterol elevated, discussed dietary changes to improve, avoiding meat and dairy produc ts, avoiding processed foodsDecrease saturated Fats (meat, dairy products and processed foods)Increase Unsaturated fats (fish, plants, nuts, seeds, beans and vegetable oils)Increase aerobic exerciseIncrease water intake Read Labels * Follow up:* FU in 6 months, fasting labs a week prior. * E55.9 Vitamin D deficiency, unspecified* Comments:* Her laboratory reports were reviewed in detail.Vit D at 29.To start vit D supplement once a week as directed and will need to check bloodwork periodically. * Follow up:* FU in 6 months, fasting labs a week prior. * Z71.2 Person consulting for explanation of examination or test findings* Comments:* Her laboratory reports were reviewed in detail and were all within normal limits. We will continue to monitor through periodic blood work. 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 Sent [address] [place] [address] [phone] Tor Bee MD Patient requesting referr al to GI for " inconsistent bowels". States was previously diagnosed with Gluten Intolerance. Sent 12/15/2020 [address] [place] [address] [phone]
--- OUTSIDE RECORDS SUMMARY | 2021-01-13 10:43 | CCD | Continuity of Care Document ---
Author Author [facility] [place] Organization Unknown Address [address] [place] [address] [address] [place] [address] Phone [phone] Care Team Providers Care Security System Engineer Name Role Phone Kaylee Silav AUTM [phone] Problems Description No Information Available Social History [...] SIG Qnty Indications Ordering Provide r Date Benadryl Allergy 25mg Tablets As needed Unknown Probiotic 250mg Capsules 2 da bhanu Unknown Sudafed 30mg Tablets As neede d [facility] Albuterol Sulfate (2 .5mg/3ML) 0.083% Nebulizer As needed [facility], [facility] Epinephrine 0.3mg/0. 3ML Solution Auto-Inject [...] Result H/L Range Note Laboratory test finding 10/19/2020 [facility] Hgba1c <pending> TSH Highly Sensitive <pending> Vitamin D (25-Hydroxy) <pending> FSH Serum <pending> LH <pending> Estradiol Serum <pending> T-Tranglutaminase Iga <pending> Procedures Date Code Description Status 10/16/2020 23502 Office/Outpatient New Low MDM 30 -44 Minutes Completed 10/16/2020 78575 Admin Patient Focused Health Ris k Assessment Instrument Completed 10/16/2020 75357 Brief Emotional/Beha v Assessment W/ Scoring Doc Per Standard Inst Completed Medical Devices Description No Information Available Encounters Type Date Location Provider Dx Diagnosis Office Visit 10/16/2020 2:00p [facility] Kaylee pike, [facility] Z00.01 Encounter for general adult medical exam w abnormal findings Z13.220 Encounter for screening for lipoid disorders Z13.29 Encounter for screening for oth suspected endocrine disorder J45.909 Unspecified asthma, uncompli cated Z12.4 Encounter for screening for malignant neoplasm of cervix R19.4 Change in bowel habit Assessments Date Code Description Provider 10/19/2020 J45.909 Unspecified asthma, uncomplicate d Kaylee Silva, [facility] 10/19/2020 Z00.01 Encounter for [facility] l [facility] Z13.29 Encounter for screen ing for other [facility]2020 Z13.220 [facility]o [facility]/16/2020 Z00.01 Encounter for genera l adult medical examination with abnormal findings Kaylee Silva, [facility] 10/16/2020 Z13.220 Encounter for screening for lipo id disorders Kaylee Silva, [facility] 10/16/2020 Z13.29 Encounter for screen ing for other suspected endocrine disorder Kaylee Silva, [facility] 10/16/2020 J45.909 Unspecified asthma, uncomplicate d Kaylee Silva, [facility] 10/16/2020 Z12.4 Encounter for screening for geoff gnant neoplasm of cervix PASCALE Todd 10/16/2020 R19.4 Change in bowel habit PASCALE Loaiza Plan of Treatment Future Appointment(s):* 10/21/2020 2:00 pm - PASCALE Todd at [facility] 10/19/2020 - PASCALE Todd* J45.909 Unspecified asthma, uncomplicated Functional Status Functional Condition Comment Date Status Contacts Active Glasses Active Mental Status Mental Condition Comment Date Status Can Understand Information Activ e Referrals Refer to Reason for Referral Status Appt Date 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 Created [address] [place] [address] [phone] Tor Bee MD Patient requesting referr al to GI for " inconsistent bowels". States was previously diagnosed with Gluten Intolerance. Created [address] [place] [address] [phone]
--- OUTSIDE RECORDS SUMMARY | 2021-01-13 10:43 | CCD | Continuity of Care Document ---
Author Author Hetal SILVA V [facility] Organization Unknown Address [address] [place] [address] Phone [phone] Care Team Providers Care Finance Advisor Name Role Phone Kaylee Silva PASCALE AUTM [phone] Problems Description No Information Available Social History [...] Indications Ordering Provide r Date Ergocalciferol 1.25mg (08224 Ut) C apsules take 1 cap by mouth once a week as directed 12caps Eric Johnston MD 10/21/2020 Benadryl Allergy 25mg Tablets As needed Unknown Probiotic 250mg Capsules 2 da bhanu Unknown Sudafed 30mg Tablets As neede d [facility] Albuterol Sulfate (2 .5mg/3ML) 0.083% Nebulizer As needed [facility], [facility] Epinephrine 0.3mg/0. 3ML Solution Auto-Inject Unknown Immunizations [...] H/L Range Note CBC W/Automated Diff 10/19/2020 [facility] CBC W/Automated Diff (SEE NOTE) 1, [...] Lymph 41.0 % High 25.0 - 40.0 [place] 6.7 % 3.0 - 8.0 Eos 2.9 % 0.0 - 7.0 Baso 0.5 % 0.0 - 2.5 %Ig 0.2 % High 0.0 - 0.0 %NRBC 0.0 % 0.0 - 0.0 #Neut 4.06 10^3/uL 2.00 - 6.90 #Lymph 3.42 10^3/uL High 0.60 - 3.40 #[place] 0.56 10^3/uL 0.00 - 0.90 #Eos 0.24 10^3/uL 0.00 - 0.70 #Baso 0.04 10^3/uL 0.00 - 0.20 #Ig 0.02 10^3/uL 0.00 - 0.10 #NRBC 0.00 10^3/uL 0.00 - 0.00 Manual Diff NOT INDICATED RBC Morph NOT INDICATED Comprehensive Metabolic Panel 10/19/2020 [facility] Comprehensive Metabo (SEE NOTE) 3 Sodium [...] GFR >60 mL/min 4 Cve Panel 10/19/2020 [facility] Cve Panel (SEE NOTE) 5 Cholesterol 205 mg/dL High 131 - 200 Triglycerides 66 mg/dL 35 - 160 HDL 77 mg/dL 29 - 86 LDL 128 mg/dL 65 - 175 Risk Factor 2.7 Low 3.2 - 4.4 LDL/HDL 1.66 1.47 - 3.22 6 Laboratory test finding 10/19/2020 [facility] Hgba1c 4.5 % 4.4 - 6.1 7 [...] methodology Procedures Date Code Description Status 10/21/2020 86985 Office/Outpatient Established SF MDM 10-19 Min Completed 10/16/2020 43520 Office/Outpatient New Low MDM 30 -44 Minutes Completed 10/16/2020 61997 Admin Patient Focused Health Ris k Assessment Instrument Completed 10/16/2020 89016 Brief Emotional/Beha v Assessment W/ Scoring Doc Per Standard Inst Completed Medical Devices Description No Information Available Encounters Type Date Location Provider Dx Diagnosis Office Visit 10/21/2020 2:00p [facility] PASCALE Do J45.909 Unspecified asthma, uncomplicated E78.00 Pure hypercholesterolemia, u nspecified E55.9 Vitamin D deficiency, unspec ified Z71.2 Person consulting for explan ation of exam or test findings Assessments Date Code Description Provider 10/21/2020 J45.909 Unspecified asthma, uncomplicate d PASCALE Todd 10/21/2020 E78.00 Pure hypercholesterolemia, unspe cified PASCALE Todd 10/21/2020 E55.9 Vitamin D deficiency, unspecifie d Kaylee Silva, [facility] 10/21/2020 Z71.2 Person consulting fo r explanation of examination or test findings Kaylee Silva, [facility] 10/19/2020 J45.909 Unspecified asthma, uncomplicate d Kaylee Silva, [facility] 10/19/2020 Z00.01 Encounter for genera l adult medical examination with abnormal findings [facility] 10/19/2020 Z13.29 Encounter for screen ing for other suspected endocrine disorder [facility] 10/19/2020 Z13.220 Encounter for screening for lipo id disorders [facility] 10/16/2020 Z00.01 Encounter for genera l adult medical examination with abnormal findings Kaylee Silva, [facility] 10/16/2020 Z13.220 Encounter for screening for lipo id disorders Kaylee Silva, [facility] 10/16/2020 Z13.29 Encounter for screen ing for other suspected endocrine disorder Kaylee Ricardo, [facility] 10/16/2020 J45.909 Unspecified asthma, uncomplicate d Kaylee Silva, [facility] 10/16/2020 Z12.4 Encounter for screening for geoff gnant neoplasm of cervix Kaylee Ricardo, [facility] 10/16/2020 R19.4 Change in bowel habit Kaylee Multani s, PASCALE Plan of Treatment Future Appointment(s):* 04/30/2021 11:20 am - PASCALE Todd at [facility] * 04/23/2021 8:30 am - [facility] 10/21/2020 - Kaylee Silva [facility]* J45.909 Unspecified asthma, uncomplicated* Comments:* Currently stable.To [...] All * New Medication:* Ergocalciferol 1.25 mg (64881 Ut) - take 1 cap by mouth once a week as directed Functional Status Functional Condition Comment Date Status Contacts Active Glasses Active Mental Status Mental Condition Comment Date Status Can Understand Information Activ e Referrals Refer to Reason for Referral Status Appt Date 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 Sent [address] [place] [address] [phone] Tor Bee MD Patient requesting referr al to GI for " inconsistent bowels". States was previously diagnosed with Gluten Intolerance. Sent 12/15/2020 [address] [place] [address] [phone]
--- OUTSIDE RECORDS SUMMARY | 2021-01-13 10:43 | CCD | Continuity of Care Document ---
Author Author Hetal SILVA V [facility] Organization Unknown Address [address] [place] [address] Phone [phone] Care Team Providers Care Cytology Teacher Name Role Phone TanishelbyKaylee AUTM [phone] Problems Description No Information Available Social History [...] Sulfate (2 .5mg/3ML) 0.083% Nebulizer As needed [facility], [facility] Epinephrine 0.3mg/0. 3ML Solution Auto-Inject Unknown [...] BSA (Body Surface Area) 1.59 m2 Results Description No Information Available Procedures Date Code Description Status 10/16/2020 81611 Admin Patient Focused Health Ris k Assessment Instrument Completed 10/16/2020 59962 Brief Emotional/Beha v Assessment W/ Scoring Doc Per Standard Inst Completed Medical Devices Description No Information Available Encounters Description No Information Available Assessments Date Code Description Provider 10/16/2020 Z00.01 Encounter for genera l adult medical examination with abnormal findings MACARIO ToddP 10/16/2020 Z13.220 Encounter for screening for lipo id disorders Kaylee Silva, [facility] 10/16/2020 Z13.29 Encounter for screen ing for other suspected endocrine disorder Kaylee Silva, [facility] 10/16/2020 J45.909 Unspecified asthma, uncomplicate d Kaylee Silva, [facility] 10/16/2020 Z12.4 Encounter for screening for geoff gnant neoplasm of cervix Kaylee Silva [facility] 10/16/2020 R19.4 Change in bowel habit Kaylee Multani llsPASCALE Plan of Treatment Future Appointment(s):* 10/19/2020 8:40 am - PASCALE Todd at [facility] 10/16/2020 - PASCALE Todd* Z00.01 Encounter for general adult medical examination with abnormal findings* Comments:* Encouraged to exercise on a regular basis and watch her weight. She is due for her labs. Routine labs ordered. Goal is to keep her health issues stable so she can remain active and live independently. * Follow up:* FU to review lab results once they are back. * Z13.220 Encounter for screening for lipoid disorders* Comments:* To have the routine labs done to evaluate further.Further plans to follow the lab results.We will continue to monitor. * Follow up:* FU to review lab results once they are back. * Z13.29 Encounter for screening for other suspected endocrine disorder* Comments:* To have the routine labs done to evaluate further.Further plans to follow the lab results.We will continue to monitor. * Follow up:* FU to review lab results once they are back. * J45.909 Unspecified asthma, uncomplicated* Comments:* Currently stable.To continue current medication and plan of care.We will continue to monitor. * Z12.4 Encounter for screening for malignant neoplasm of cervix* Comments:* She was given a referral to Gynecology for her routine Pap and pelvic exam.We will continue to monitor. * R19.4 Change in bowel habit* Comments:* She was given a referral to GI for evaluation and treatment of her inconsistent bowels. She has a hx of gluten intolerance.We will continue to monitor. * All * Referral:* Brandon Hernandez public health aide, * Tor Bee MD, Gastroenterology Functional Status Functional Condition Comment Date Status Contacts Active Glasses Active Mental Status Mental Condition Comment Date Status Can Understand Information Activ e Referrals Refer to Reason for Referral Status Appt Date Brandon Hernandez public health aide Leonila Keyse, Patient requ esting to establish for pap smear, pelvic exam and discussion regarding abnormal periods. Created [address] [place] [address] [phone] Tor Bee MD Patient requesting referr al to GI for " inconsistent bowels". States was previously diagnosed with Gluten Intolerance. Created [address] [place] [address] [phone]
--- OUTSIDE RECORDS SUMMARY | 2021-01-13 10:43 | CCD | Continuity of Care Document ---
Author Author [facility] Organization [facility] Address Unknown Phone Unavailable Care Team Providers Care Bus Greaser Name Role Phone Kaylee Sanchez MD Unavailable [...] cnsl and advice on contraception Encntr for lead medical technologist exam (general) (routine) w/o abn findings Enctr srvlnc implantable subdermal contraceptive Encounter for oth general cnsl and advice on contraception Other sex counseling Encounter for prescription of emergency contraception Human immunodeficiency virus [HIV] counseling Other sex counseling Encounter for oth general cnsl and advice on contraception Encntr for lead medical technologist exam (general) (routine) w/o abn findings Enctr [...] screening for human papillomavirus (HPV) Encntr for lead medical technologist exam (general) (routine) w/o abn findings Other sex counseling High risk heterosexual behavior Encounter for oth general cnsl and advice on contraception Encounter for surveillance of contraceptive pills Human immunodeficiency virus [HIV] counseling Human immunodeficiency virus [HIV] counseling Encntr screen for infections w sexl mode of transmiss High risk heterosexual behavior Encounter for surveillance of contraceptive pills Encntr for lead medical technologist exam (general) (routine) w/o abn findings HIV [...] Provider Providers Copied on Encounter [facility], [address] [place] [address], [address] [place] [address], tel:[phone] [facility] [place] No Information Daniel Page. [address] [place] [address], [id number], . tel:[phone] [facility], [address] [place] [address], [id number], tel:[phone] [facility] [place] Other fatigueUnspecified a bdominal pain Dwello Karley Francois. [address] [place], [place], [id number], . tel:[phone] [facility], [address] [place] [address], [id number], tel:[phone] [facility] [place] Encounter for pregn azalia test, result negativeEncounter for oth general cnsl and advice on contraceptionEncntr screen for infections w sexl mode of transmissHuman immunodeficiency virus [HIV] counselingOther sex counselingPelvic and perineal pain Clayton Ross. [address] [place], [place], [id number], [place]. tel:[phone] Referring Provider: Ana Rosa Arnold, [address] [place], [place], [id number]. tel:[phone] [facility], [address] [place] [address], [id number], [place] tel:[phone] [facility] [place] Generalized abdomin al painOther fatiguePelvic and perineal pain Dwello Karley Francois. [address] [place], [place], [id number], [place]. tel:[phone] Referring Provider: Karley Rivas, [address] [place] [address], [id number]. tel:[phone] [facility], [address] [place] [address], [id number], [place] tel:[phone] [facility] [place] Encounter for pregn azalia test, result negativeOther sex counselingHuman immunodeficiency virus [HIV] counselingEncounter for oth general cnsl and advice on contraceptionEncntr for lead medical technologist exam (general) (routine) w/o abn findings Lisa Fox. [address] [place] [address], [id number], [place]. tel:[phone] Referring Provider: Carin Velazquez, [address] [place], [place], [id number]. tel:[phone] [facility], [address] [place] [address], [id number], [place] tel:[phone] [facility] [place] Enctr srvlnc implan table subdermal contraceptiveEncounter for oth general cnsl and advice on contraceptionOther sex counselingEncounter for prescription of emergency contraception Evelyn Francois. [address] [place] [address], [id number], [place]. tel:[phone] Referring Provider: Karley Rivas, [address] [place] [address], [id number]. tel:[phone] [facility], [address] [place] [address], [id number], [place] tel:[phone] [facility] [place] Human immunodeficie ncy virus [HIV] counselingOther sex counselingEncounter for oth general cnsl and advice on contraceptionEncntr for lead medical technologist exam (general) (routine) w/o abn findingsEnctr srvlnc implantable subdermal contraceptiveBody mass index (BMI) 28.0-28.9, adult Marcus Del Rosario. [address] [place] [address], [id number], [place]. tel:[phone] Referring Provider: Carin Velazquez, [address] [place], [place], [id number]. tel:[phone] [facility], [address] [place] [address], [address] [place] [address], [place] tel:[phone] [facility] [place] Encounter for pregn azalia test, result negativeOther sex counselingEncounter for oth general cnsl and advice on contraceptionEnctr for init prescription of implntbl subdermal contracep Lisa Fox. [address] [place] [address], [id number], . tel:[phone] Referring Provider: Dominique Gonzalez, [address] [place], [place], [id number]. tel:[phone] [facility], [address] [place] [address], [id number], [place] tel:[phone] [facility] [place] Other sex counselin gEncounter for oth general cnsl and advice on contraceptionEncounter for test, result negativeEncounter for surveillance of contraceptive pills Marcus Del Rosario. [address] [place] [address], [id number], . tel:[phone] Referring Provider: Carin Velazquez, [address] [place] [address], [id number]. tel:[phone] [facility], [address] [place] [address], [id number], [place] tel:[phone] STACY [place] Encounter for felipa lundy for human papillomavirus (HPV)Encntr for lead medical technologist exam (general) (routine) w/o abn findingsOther sex counselingHigh risk heterosexual behaviorEncounter for oth general cnsl and advice on contraceptionEncounter for surveillance of contraceptive pillsHuman immunodeficiency virus [HIV] counseling Marcus Del Rosario. [address] [place] [address], [id number], [place]. tel:[phone] Referring Provider: Carin Velazquez, [address] [place], [place], [id number]. tel:[phone] [facility], [address] [place] [address], [address] [place] [address], [place] tel:[phone] STACY [place] Human immunodeficie ncy virus [HIV] counselingEncntr screen for infections w sexl mode of transmissHigh risk heterosexual behaviorEncounter for surveillance of contraceptive pillsEncntr for lead medical technologist exam (general) (routine) w/o abn findings De henry Mendenhall. [address] [place] [address], [id number], [place]. tel:[phone] Referring Provider: Za Parker, [address] [place] [address], [id number]. tel:[phone] [facility], [address] [place] [address], [id number], [place] tel:[phone] PP[facility] [place] HIV CounselingHIV, ScreeningSTI CounselingSTI ScreeningGenital ItchingVaginal DischargeYeast- vulvovaginalNocturiaPolyuriaFamily Planning Counseling Zitahenry Mendenhall. [address] [place] [address], [id number], [place]. tel:[phone] Family History Family Member Diagnosis Age At [...] type Covered green party ID Authorization(s ) [facility] [id number] Social History Type Description Quantity Date Captured [...] Date No Information Medical Equipment Description Device Caldwell Device Identifier Effective Adrian es (start - stop) Status No Information Mental Status Date Cognitive Assessment No Information Health Concerns Observation Date No Information Concern Status Date No Information Physical Examination Exam Findings Details No Information
--- OUTSIDE RECORDS SUMMARY | 2021-01-13 10:43 | CCD | Continuity of Care Document ---
Author Author [facility] Organization Unknown Address [address] [place] [address] Phone [phone] Care Team Providers Care Painter Mirror Name Role Phone Kaylee Silva AUTM [phone] Problems Description No Information Available Social History [...] Indications Ordering Provide r Date Ergocalciferol 1.25mg (48043 Ut) C apsules take 1 cap by mouth once a week as directed 12caps Hard coby Johnston MD 10/21/2020 Benadryl Allergy 25mg Tablets As needed Unknown Probiotic 250mg Capsules 2 da bhanu Unknown Sudafed 30mg Tablets As neede d [facility] Albuterol Sulfate (2 .5mg/3ML) 0.083% Nebulizer As needed [facility] Epinephrine 0.3mg/0. 3ML Solution Auto-Inject Unknown Immunizations [...] H/L Range Note CBC W/Automated Diff 10/19/2020 [facility] CBC W/Automated Diff (SEE NOTE) 1, [...] Lymph 41.0 % High 25.0 - 40.0 [place] 6.7 % 3.0 - 8.0 Eos 2.9 % 0.0 - 7.0 Baso 0.5 % 0.0 - 2.5 %Ig 0.2 % High 0.0 - 0.0 %NRBC 0.0 % 0.0 - 0.0 #Neut 4.06 10^3/uL 2.00 - 6.90 #Lymph 3.42 10^3/uL High 0.60 - 3.40 #[place] 0.56 10^3/uL 0.00 - 0.90 #Eos 0.24 10^3/uL 0.00 - 0.70 #Baso 0.04 10^3/uL 0.00 - 0.20 #Ig 0.02 10^3/uL 0.00 - 0.10 #NRBC 0.00 10^3/uL 0.00 - 0.00 Manual Diff NOT INDICATED RBC Morph NOT INDICATED Comprehensive Metabolic Panel 10/19/2020 [facility] Comprehensive Metabo (SEE NOTE) 3 [...] GFR >60 mL/min 4 Cve Panel 10/19/2020 [facility] Cve Panel (SEE NOTE) 5 Cholesterol 205 mg/dL High 131 - 200 Triglycerides 66 mg/dL 35 - 160 HDL 77 mg/dL 29 - 86 LDL 128 mg/dL 65 - 175 Risk Factor 2.7 Low 3.2 - 4.4 LDL/HDL 1.66 1.47 - 3.22 6 Laboratory test finding 10/19/2020 [facility] Hgba1c 4.5 % 4.4 - 6.1 7 TSH Highly Sensitive 0.72 uIU/mL 0.47 - 5.01 Vitamin D (25-Hydroxy) 29 NG/ML 8 FSH Serum 5.6 mIU/mL 9 LH 8.2 mIU/mL 10 Estradiol Serum 153.0 pg/mL 11 T-Tranglutaminase Iga <2 U/mL 0-3 12 1 Is patient fasting? Y 2 COMPLETE [...] trimester 215.0 - >4300.0 Arian ECLIA methodology 12 Negative 0 - 3 Weak Positive 4 - 10 Positive >10 Tissue Transglutaminase (tTG) has been identified as the endomysial antigen. Studies have demonstr- ated that endomysial IgA antibodies have over 99% specificity for gluten sensitive enteropathy. Procedures Date Code Description Status 10/21/2020 59897 Office/Outpatient Established SF MDM 10-19 Min Completed 10/16/2020 15733 Office/Outpatient New Low MDM 30 -44 Minutes Completed 10/16/2020 15547 Admin Patient Focused Health Ris k Assessment Instrument Completed 10/16/2020 45464 Brief Emotional/Beha v Assessment W/ Scoring Doc Per Standard Inst Completed Medical Devices Description No Information Available Encounters Type Date Location Provider Dx Diagnosis Office Visit 10/21/2020 2:00p [facility] Kaylee pike, PASCALE J45.909 Unspecified asthma, uncomplicated E78.00 Pure hypercholesterolemia, u nspecified E55.9 Vitamin D deficiency, unspec ified Z71.2 Person consulting for explan ation of exam or test findings Assessments Date Code Description Provider 10/21/2020 J45.909 Unspecified asthma, uncomplicate d Kaylee Nevills, [facility] 10/21/2020 E78.00 Pure hypercholesterolemia, unspe cified Kaylee Nevills, [facility] 10/21/2020 E55.9 Vitamin D deficiency, unspecifie d Kaylee Nevills, [facility] 10/21/2020 Z71.2 Person consulting fo r explanation of examination or test findings Kaylee Nevills, [facility] 10/19/2020 J45.909 Unspecified asthma, uncomplicate d Kaylee Nevills, [facility] 10/19/2020 Z00.01 Encounter for genera l adult medical examination with abnormal findings [facility] 10/19/2020 Z13.29 Encounter for screen ing for other suspected endocrine disorder [facility] 10/19/2020 Z13.220 Encounter for screening for lipo id disorders [facility] 10/16/2020 Z00.01 Encounter for genera l adult medical examination with abnormal findings Kaylee Nevills, [facility] 10/16/2020 Z13.220 Encounter for screening for lipo id disorders Kaylee Nevills, [facility] 10/16/2020 Z13.29 Encounter for screen ing for other suspected endocrine disorder Kaylee Nevills, [facility] 10/16/2020 J45.909 Unspecified asthma, uncomplicate d Kaylee Nevills, [facility] 10/16/2020 Z12.4 Encounter for screening for geoff gnant neoplasm of cervix Kaylee Ricardo, [facility] 10/16/2020 R19.4 Change in bowel habit Kaylee Multani s, IT PROJECT COORDINATOR Plan of Treatment Future Appointment(s):* 04/30/2021 11:20 am - PASCALE Todd at [facility] * 04/23/2021 8:30 [facility] 10/21/2020 - Kaylee Silva IT PROJECT COORDINATOR* J45.909 Unspecified asthma, uncomplicated* Comments:* Currently stable.To [...] All * New Medication:* Ergocalciferol 1.25 mg (56488 Ut) - take 1 cap by mouth once a week as directed Functional Status Functional Condition Comment Date Status Contacts Active Glasses Active Mental Status Mental Condition Comment Date Status Can Understand Information Activ e Referrals Refer to Reason for Referral Status Appt Date Taylor 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 Sent [address] [place] [address] [phone] Tor Bee MD Patient requesting referr al to GI for " inconsistent bowels". States was previously diagnosed with Gluten Intolerance. Sent 12/15/2020 [address] [place] [address] [phone]
--- OUTSIDE RECORDS SUMMARY | 2021-01-13 10:43 | CCD | Continuity of Care Document ---
Author Author Hetal SILVA V [facility] Organization Unknown Address [address] [place] [id number] Phone [phone] Care Team Providers Care Brick Shader Name Role Phone Kaylee Silva PASCALE AUTM [phone] Problems Description No Information Available Social History [...] Indications Ordering Provide r Date Ergocalciferol 1.25mg (69289 Ut) C apsules take 1 cap by mouth once a week as directed 12caps Eric Johnston MD 10/21/2020 Benadryl Allergy 25mg Tablets As needed Unknown Probiotic 250mg Capsules 2 da bhanu Unknown Sudafed 30mg Tablets As neede d [facility] Albuterol Sulfate (2 .5mg/3ML) 0.083% Nebulizer As needed [facility], [facility] Epinephrine 0.3mg/0. 3ML Solution Auto-Inject Unknown [...] H/L Range Note CBC W/Automated Diff 10/19/2020 [facility] CBC W/Automated Diff (SEE NOTE) 1, [...] Lymph 41.0 % High 25.0 - 40.0 [place] 6.7 % 3.0 - 8.0 Eos 2.9 % 0.0 - 7.0 Baso 0.5 % 0.0 - 2.5 %Ig 0.2 % High 0.0 - 0.0 %NRBC 0.0 % 0.0 - 0.0 #Neut 4.06 10^3/uL 2.00 - 6.90 #Lymph 3.42 10^3/uL High 0.60 - 3.40 #[place] 0.56 10^3/uL 0.00 - 0.90 #Eos 0.24 10^3/uL 0.00 - 0.70 #Baso 0.04 10^3/uL 0.00 - 0.20 #Ig 0.02 10^3/uL 0.00 - 0.10 #NRBC 0.00 10^3/uL 0.00 - 0.00 Manual Diff NOT INDICATED RBC Morph NOT INDICATED Comprehensive Metabolic Panel 10/19/2020 [facility] Comprehensive Metabo (SEE NOTE) 3 [...] GFR >60 mL/min 4 Cve Panel 10/19/2020 [facility] Cve Panel (SEE NOTE) 5 Cholesterol 205 mg/dL High 131 - 200 Triglycerides 66 mg/dL 35 - 160 HDL 77 mg/dL 29 - 86 LDL 128 mg/dL 65 - 175 Risk Factor 2.7 Low 3.2 - 4.4 LDL/HDL 1.66 1.47 - 3.22 6 Laboratory test finding 10/19/2020 [facility] Hgba1c 4.5 % 4.4 - 6.1 7 [...] methodology Procedures Date Code Description Status 10/21/2020 74993 Office/Outpatient Established SF MDM 10-19 Min Completed 10/16/2020 76590 Office/Outpatient New Low MDM 30 -44 Minutes Completed 10/16/2020 32068 Admin Patient Focused Health Ris k Assessment Instrument Completed 10/16/2020 56457 Brief Emotional/Beha v Assessment W/ Scoring Doc Per Standard Inst Completed Medical Devices Description No Information Available Encounters Type Date Location Provider Dx Diagnosis Office Visit 10/21/2020 2:00p [facility] PASCALE Do J45.909 Unspecified asthma, uncomplicated E78.00 Pure hypercholesterolemia, u nspecified E55.9 Vitamin D deficiency, unspec ified Z71.2 Person consulting for explan ation of exam or test findings Assessments Date Code Description Provider 10/21/2020 J45.909 Unspecified asthma, uncomplicate d PASCALE Todd 10/21/2020 E78.00 Pure hypercholesterolemia, unspe cified [facility] Todd 10/21/2020 E55.9 Vitamin D deficiency, unspecifie d Kaylee Silva, [facility] 10/21/2020 Z71.2 Person consulting fo r explanation of examination or test findings Kaylee Silva, [facility] 10/19/2020 J45.909 Unspecified asthma, uncomplicate d Kaylee Silva, [facility] 10/19/2020 Z00.01 Encounter for genera l adult medical examination with abnormal findings [facility] 10/19/2020 Z13.29 Encounter for screen ing for other suspected endocrine disorder [facility] 10/19/2020 Z13.220 Encounter for screening for lipo id disorders [facility] 10/16/2020 Z00.01 Encounter for genera l adult medical examination with abnormal findings Kaylee Silva, [facility] 10/16/2020 Z13.220 Encounter for screening for lipo id disorders Kaylee Silva, [facility] 10/16/2020 Z13.29 Encounter for screen ing for other suspected endocrine disorder Kaylee Ricardo, [facility] 10/16/2020 J45.909 Unspecified asthma, uncomplicate d Kaylee Silva, [facility] 10/16/2020 Z12.4 Encounter for screening for geoff gnant neoplasm of cervix Kaylee Ricardo, [facility] 10/16/2020 R19.4 Change in bowel habit Kaylee Multani s, [facility] Plan of Treatment Future Appointment(s):* 04/30/2021 11:20 am - [facility] Todd at [facility] * 04/23/2021 8:30 am - [facility] 10/21/2020 - Kaylee Silva [facility]* J45.909 Unspecified asthma, uncomplicated* Comments:* Currently [...] All * New Medication:* Ergocalciferol 1.25 mg (79983 Ut) - take 1 cap by mouth once a week as directed Functional Status Functional Condition Comment Date Status Contacts Active Glasses Active Mental Status Mental Condition Comment Date Status Can Understand Information Activ e Referrals Refer to Reason for Referral Status Appt Date [employer]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 Sent [address] [place] [address] [phone] Tor Bee MD Patient requesting referr al to GI for " inconsistent bowels". States was previously diagnosed with Gluten Intolerance. Sent 12/15/2020 [address] [place] [address] [phone]
--- OUTSIDE RECORDS SUMMARY | 2021-01-13 10:44 | CCD ---
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 fasting? Y Hematocrit 44.8 % 37.0-47.0 [facility] ([facility]) Is patient fasting? Y MCH 33.3 pg 27.0-34.0 [facility] ([facility]) Is patient fasting? Y MCHC 33.5 g/dL 31.0-36.0 [facility] ([facility]) Is patient fasting? Y RDW 12.4 % 11.5-14.5 [facility] ([facility]) Is patient fasting? Y Neut 48.7 % 37.0-80.0 [facility] ([facility]) Is patient fasting? Y Platelets 300 10^3/uL 150-450 [facility] ([facility]) Is patient fasting? Y MPV 10.1 fL 7.4-10.4 [facility] ([facility]) Is patient fasting? Y Lymph 41.0 % 25.0-40.0 Above high normal [facility] ([facility]) Is patient fasting? Y [place] 6.7 % 3.0-8.0 [facility] ([facility]) Is patient fasting? Y Baso 0.5 % 0.0-2.5 [facility] ([facility]) Is patient fasting? Y Eos 2.9 % 0.0-7.0 [facility] ([facility]) Is patient fasting? Y %Ig 0.2 % 0.0-0.0 Above high normal [facility] ([facility]) Is patient fasting? Y #Neut 4.06 10^3/uL 2.00-6.90 [facility] ([facility]) Is patient fasting? Y #Lymph 3.42 10^3/uL 0.60-3.40 Above high normal MEDEN T ([facility]) Is patient fasting? Y %NRBC 0.0 % 0.0-0.0 [facility] ([facility]) Is patient fasting? Y #Eos 0.24 10^3/uL 0.00-0.70 [facility] ([facility]) Is patient fasting? Y #[place] 0.56 10^3/uL 0.00-0.90 [facility] ([facility]) Is patient fasting? Y #NRBC 0.00 10^3/uL 0.00-0.00 [facility] ([facility]) Is patient fasting? Y #Ig 0.02 10^3/uL 0.00-0.10 [facility] ([facility]) Is patient fasting? Y #Baso 0.04 10^3/uL 0.00-0.20 [facility] ([facility]) Is patient fasting? Y Manual Diff Laboratory test result M EDENT ([facility]) Is patient fasting? Y RBC Morph Laboratory test result [facility] ([facility]) Is patient fasting? Y ID Date Data Source [id number] 09/10/2020 06:38:28 PM EDT [facility] ([facility]) Name Value Range Interpretation Code Description Data Lashanda rce(s) Supporting Document(s) Hyphae/Ariana: no; Budding yeast: no; Trich: no; Clue cells: yes (<20%); WBCs: yes (few); Amine/Whiff test: negative; pH: 4.5 A bnormal (applies to non- numeric results) Wet Prep [facility] ([facility]) ID Date Data Source [id number] 09/10/2020 06:37:59 PM EDT [facility] ([facility]) Name Value Range Interpretation Code Description Data Lashanda rce(s) Supporting Document(s) pH: 4.5. Vaginal pH [facility] ([facility]) ID Date Data Source [id number] 09/10/2020 06:14:21 PM EDT [facility] ([facility]) Name Value Range Interpretation Code Description Data Lashanda rce(s) Supporting Document(s) NegativeLot: [id number]: 03/19/2022 High Sensitivity Urine Test [facility] ([facility]) ID Date Data Source [id number] 06/12/2020 12:59:03 PM EDT [facility] ([facility]) Name Value Range Interpretation Code Description Data Lashanda rce(s) Supporting Document(s) NegativeLot: [id number]: 12/17/2021 High Sensitivity Urine Test [facility] ([facility]) ID Date Data Source [id number] 02/21/2020 02:05:33 AM EST [facility] Name Value Range Interpretation Code Description Data Lashanda rce(s) Supporting Document(s) ED Provider Note [facility] [id number] [facility] [file] [id number]= ID Date Data Source [id number] 02/21/2020 12:00:00 AM EST [facility] Name Value Range Interpretation Code Description Data Lashanda rce(s) Supporting Document(s) SARS coronavirus 2 Ag [facility] This lab was ordered by [facility] and reported by [facility]. ID Date Data Source [id number] 02/17/2020 09:56:10 AM EST [facility] Name Value Range Interpretation Code Description Data Lashanda rce(s) Supporting Document(s) Consultation [facility] [id number]OHdKGhWoWcFmFEGr lbm [file] AgICAgICAgICAgICAgICAgICAgICAgICAgICAgICAgICAgICAgICAgICAgICAgICAgICAgICAgICAgIC XyIETpKLWxCTCiFDUhPNSaCJBoMKLjAO0PNPSkNKLn ICAgICAgICAgICAgICAgICAgICAgICAgICAgICAgICAgICAgICAgICAgICAgICAgICAgICAgICAgICAg YJJgPMCtJYJjRPYyWDHzIXZsHVWcLPHkPNBoBVSeWJHpEF2NJVFzTXGmKMJbXTMfVSVrCCAsNGXjPHHt ICAgICAgICAgICAgICAgICAgICAgICAgICAgICAgIC MnOHMeRRRwAVWpSFYwLITqKFDgJKIkFKGbDXGlHKUkNKErZIYmOOYzUQAlAN1MXXQkRRRsBBSuNSXwEB AgICAgICAgICAgICAgICAgICAgICAgICAgICAgICAgICAgICAgICAgICAgICAgICAgICAgICAgICAgIC TmZDRxSOHwPFOmMECxFROwWFCdJEKpILTgUU6OUOAe ICAgICAgICAgICAgICAgICAgICAgICAgICAgICAgICAgICAgICAgICAgICAgICAgICAgICAgICAgICAg XDUbEHDbAWJeDIFjNHMcLOShEMIpLYXhSVReDUFxRHVsYIPvEX7ZCJUnLYGzXDYiUINlXOKbNQWqBOMb ICAgICAgICAgICAgICAgICAgICAgICAgICAgICAgIC EiDWQfTJNdEVJgBPEqARKbLXLeZNIvYIJtZFRtDBZpTLDgNKJiDOCfKHFeUMRyJA2RMZSiIWQmIFVlIE AgICAgICAgICAgICAgICAgICAgICAgICAgICAgICAgICAgICAgICAgICAgICAgICAgICAgICAgICAgIC SuYCMbCABrGUAlXRNnLMKtAQNdFJIaFOObLTZcSN6D ICAgICAgICAgICAgICAgICAgICAgICAgICAgICAgICAgICAgICAgICAgICAgICAgICAgICAgICAgICAg DZYpDZMsJVPtJIXbTNHnAZApSJPgJPEcWNAjSWTlVYWrKBPxHCTiVT2BIDGbDIDjMESpMPMcHPRsCPPs ICAgICAgICAgICAgICAgICAgICAgICAgICAgICAgIC YhRMUoJAUwXKJkKYTkFQDzFUQpQQWvWPZqEXQxITFrTVMmLEPrYBPiXNCtKZTeYGMnCR6IHYXvLUClZV AgICAgICAgICAgICAgICAgICAgICAgICAgICAgICAgICAgICAgICAgICAgICAgICAgICAgICAgICAgIC AgICAgICAgICAgICAgICAgICAgICAgICAgICAgICAg VS0DON02bMRcj3Z1IIGdTL5yvvs/Jl3JSBhxtgDivCLlDR9URvEeBL7fhl0UDxGkNN1awa9RJReWSlZs S3A4kEVtPTQqGXVFSvClU94zIVafYq64CRfsZEVgFyJjSBp6Xl0XNkTdA6udIRTzBeW8SGBkBtC8XCVe YpC2KBObYtUrAGGuBRZyIN6CJXCsK884elCvKK9LRu 2TJlUpST6dwt3NCebrHEIpMzmIVge0OPeoEU3CpVDktUMeWVOrQUHHEiIcZ8kds0NkXqppNBGBUJlyBF 2Jo8WhnTZqZBd+Zx5XWV6lh3VqBBvrOOKvDK2ysu2DTChGMoKjP6EmwQozXOAlybY0pUUeRYN5MANgyq dvZZLiG7UuGQZqBQG7TZQYLJObxUJwGV7cXS8hPXBd ELCdQeSnZLWZDP5OKFWpESMejMSgDNNxNFVLSR6YHRveAKE8HXIryfLzqVEyRTdvDE6JFDFrsmNtLhzf MCBSDQo+Nm5OHN9ti5ZlJUflHXJgGK9coc9OSTpHFkEtO1C6hCXaF5R8DSnrNu6MSKVlRBVwNfDvDPPW FNyjLS0BAV4okwB2RG5ClEJiRIDqLGEsaKOqIZb1H7 7ojLKcXEymEY1QLRG+Itzel+Wm9NWOSfDJAlPQHzLeIkMNGQZoZlB2ZnN1YZq5OwY8JpFT91uUyqjuUrEY moUO6ZYF7kGFVwCYLNNN8BpZUqpI7gahIxZVBsDEVGRdIsE05tsWAzWKYfCCW2QHNgQm2OGRWcX8Rdzg DdfJmkdwFiBHGrXPRCUR7PUGmgsiBliQVvzSazCI19 hGwwRX5HNw3GYtZqRH9ytx7LhLNxNs6SCCCeXG9HQOOtALTmEFXdLNS3GIThChKiPKrcULZoYIAlYZL8 OUAlAGItVW7ZZzDpMPIxUqu8HZolCGAwJSUoxz8NUZZbBOSdCEF5ENPmQGHkEMUnOXabQGMvWGGsFBD9 UBLmQEIwWW1YMxPuPSKfLVPxYoErIYIiIJRukj5MVD LbRMVbRzNySALkVDAdVQZaGUilRBOgANO1LYi0YAWzWQAoDG4DGmKdBAGmEBZgATXjCCExCIPyrr3DZF AfNKJoYUY6VNZnUCKcWPSqONntYJDgDXJySSw2YNEoEFWpAE0DBoRsITUvGGQ6BmXhOZRgAVZkiv8HTR PeONJwYqE1NJEeELXpAASgYZvlOLPzGBI7GQAaRJJl LKLyWN4VAgPtWXIwQXIuAlycKCChUJNgsk0QOZYfIXGyGMKfUYNvDZRtJENeKLppCORtBIJ5UFezLUSe FHHkMR6RTpFwELKaJYE5YjAwEXDpSLKifx0WMWRdFWPzPJc5MEEvTWRwYEMgBIdcEYDpBFA3RXOiMVNv DIXxCZ7ZMiWaBJYyFJxvIXuzAYMjKDItxg0YFXHgLA LuQlTvMZLhJMKgVDOzUZrpJZBkZOB8SHu2LEXhJZXpED9VXzWuQWSfHaw5JEBxVSJxAWSjgs0RVUIkGL IfIBUdFgJjSECjNKJuENfvZPLeVTK5NbSjMUYjVUMtDV9GHiAcRQNgAxq3OYpxZDLgCVWili8AWYSyLE AyOTkxNCAwMDAwMCBuDQowMDAwMDMxMzcxIDAwMDAw CM6GJnObOBIyUfP3LVMoUWDlAWJvej8ODAXnQTRgLDU7WDNrCPLtLJWvCXi5ktOirXMsLPn1HP8MG2Iv qcNxNxERBr7Wg975TSIpJSSuDl7ZR2bjNo3iUZKpXCIGEa0NARy5EQKjACm8S7H0OBZ8AFwpOAL4GYUo TODnYAT8TgKnY8O+MIy4Z4S9XGozOHsyVhjjSuIcOU D8ZENfG5R5HDXdOjPkQO7gDVQHXd1+BLdgtMYvzJriUPLEKgTtSBVmKNokDHBPGn5A Procedure Social History Code Duration Value Status Description Data Source(s ) Smoking 12/01/2020 12:00:00 AM EDT Never smoker completed Never s [facility] ([facility]) Smoking 02/16/2020 12:00:00 AM EST Never smoker completed Never s [facility] Vital Signs ID Date Data Source UNK Name Value Range Interpretation Code Description Data Source(s) Systolic blood pressure 106 mm[Hg] 106 mm[Hg] M [facility]ENT ([facility]) Diastolic blood pressure 56 mm[Hg] 56 mm[Hg] [facility] ([facility]) Heart rate 93 /min 93 /min [facility] ([facility]) Body temperature 97.3 [degF] 97.3 [degF] [facility] ([facility]) Respiratory rate 16 /min 16 /min [facility] ( [facility]) Oxygen saturation in Arterial blood by Pulse oximetry 100 % 100 % [facility] ([facility]) Body weight 127.50 [lb_av] 127.50 [lb_av] MEDEN T ([facility]) Body weight 57.834 kg 57.834 kg [facility] ([facility]) Body height 62 [in_i] 62 [in_i] [facility] ([facility]) 5'2" Body mass index (BMI) [Ratio] 23.3 kg/m2 23.3 k [facility] Body surface area Derived from formula 1.58 m2 1.58 m2 [facility] ([facility]) Body height 62 [in_i] 62 [in_i] [facility] ([facility]) 5'2" Body weight 126.00 [lb_av] 126.00 [lb_av] [facility]EN T ([facility]) Systolic blood pressure 110 mm[Hg] 110 mm[Hg] M EDENT ([facility]) Diastolic blood pressure 67 mm[Hg] 67 mm[Hg] [facility] ([facility]) Heart rate 76 /min 76 /min [facility] ([facility]) Body mass index (BMI) [Ratio] 23.0 kg/m2 23.0 k g/m2 [facility] ([facility]) Body weight 57.154 kg 57.154 kg [facility] ([facility] Body temperature 96.8 [degF] 96.8 [degF] [facility] ([facility]) Systolic blood pressure 116 mm[Hg] 116 mm[Hg] M EDENT ([facility]) Diastolic blood pressure 72 mm[Hg] 72 mm[Hg] [facility] ([facility]) Heart rate 71 /min 71 /min [facility] ([facility]) Body temperature 97.2 [degF] 97.2 [degF] [facility] ([facility]) Respiratory rate 16 /min 16 /min [facility] ( [facility]) Oxygen saturation in Arterial blood by Pulse oximetry 98 % 98 % [facility] ([facility]) Body weight 129.25 [lb_av] 129.25 [lb_av] MEDEN T ([facility]) Body weight 58.628 kg 58.628 kg [facility] ([facility]) Body height 62 [in_i] 62 [in_i] [facility] ([facility]) 5'2" Body mass index (BMI) [Ratio] 23.6 kg/m2 23.6 k g/m2 [facility] ([facility]) Body surface area Derived from formula 1.59 m2 1.59 m2 [facility] ([facility]) Oxygen saturation in Arterial blood by Pulse oximetry 99 % 99 % [facility] ([facility]) Body weight 130.38 [lb_av] 130.38 [lb_av] MED[facility] T ([facility]) Body weight 59.138 kg 59.138 kg [facility] ([facility]) Body height 62 [in_i] 62 [in_i] [facility] ([facility]) 5'2" Body mass index (BMI) [Ratio] 23.8 kg/m2 23.8 k g/m2 [facility] ([facility]) Body surface area Derived from formula 1.59 m2 1.59 m2 [facility] ([facility]) Systolic blood pressure 106 mm[Hg] 106 mm[Hg] M EDENT ([facility]) Diastolic blood pressure 68 mm[Hg] 68 mm[Hg] [facility] ([facility]) Heart rate 70 /min 70 /min [facility] ([facility]) Body temperature 96.9 [degF] 96.9 [degF] [facility] ([facility]) Respiratory rate 18 /min 18 /min [facility] ( [facility]) Body height 157.48 cm 157.48 cm [facility] ([facility]) Body weight 60.781 kg 60.781 kg [facility] ([facility]) Systolic blood pressure 107 mm[Hg] 107 mm[Hg] N [facility] ([facility]) Diastolic blood pressure 68 mm[Hg] 68 mm[Hg] [facility] ([facility]) Body mass index (BMI) [Ratio] 24.51 kg/m2 24.51 kg/m2 [facility] ([facility]) Body height 157.48 cm 157.48 cm [facility] ([facility]) Body weight 60.781 kg 60.781 kg [facility] ([facility]) Systolic blood pressure 107 mm[Hg] 107 mm[Hg] N [facility] ([facility]) Diastolic blood pressure 65 mm[Hg] 65 mm[Hg] [facility] ([facility]) Heart rate 67 /min 67 /min [facility] ([facility]) Body temperature 36.72 Sherry 36.72 Sherry [facility] ([facility]) Respiratory rate 18 /min 18 /min [facility] ([facility]) Body mass index (BMI) [Ratio] 24.51 kg/m2 24.51 kg/m2 [facility] ([facility]) Oxygen saturation in Arterial blood by Pulse oximetry 99 % 99 % [facility] ([facility]) Body height 157.48 cm 157.48 cm [facility] ([facility]) Body weight 60.509 kg 60.509 kg [facility] ([facility]) Systolic blood pressure 117 mm[Hg] 117 mm[Hg] N [facility] ([facility]) Diastolic blood pressure 72 mm[Hg] 72 mm[Hg] [facility] ([facility]) Body mass index (BMI) [Ratio] 24.40 kg/m2 24.40 kg/m2 [facility] ([facility]) Body height 157.48 cm 157.48 cm [facility] ([facility]) Body weight 64.864 kg 64.864 kg [facility] ([facility]) Systolic blood pressure 118 mm[Hg] 118 mm[Hg] N [facility] ([facility]) Diastolic blood pressure 70 mm[Hg] 70 mm[Hg] [facility] ([facility]) Body mass index (BMI) [Ratio] 26.15 kg/m2 Overweight 26.15 kg/m2 [facility] ([facility]) Body height 62 [in_i] 62 [in_i] [facility] ([facility]) 5'2" Body mass index (BMI) [Ratio] 24.1 kg/m2 24.1 k g/m2 [facility] ([facility]) Body weight 132.00 [lb_av] 132.00 [lb_av] MEDEN T ([facility] ) Body temperature 98.2 [degF] 98.2 [degF] [facility] ([facility] ) Systolic blood pressure 104 mm[Hg] 104 mm[Hg] [facility] ([facility], [facility]) Diastolic blood pressure 67 mm[Hg] 67 mm[Hg] [facility] ([facility], [facility]) Heart rate 90 /min 90 /min [facility] ([facility], [facility]) Respiratory rate 12 /min 12 /min [facility] ( [facility], [facility]) Oxygen saturation in Arterial blood by Pulse oximetry 99 % 99 % [facility] ([facility], [facility]) Body temperature 97.8 [degF] 97.8 [degF] [facility] ([facility], [facility]) Body weight 132.00 [lb_av] 132.00 [lb_av] MEDEN T ([facility], [facility]) Body height 62 [in_i] 62 [in_i] [facility] ([facility], [facility]) 5'2" Body mass index (BMI) [Ratio] 24.1 kg/m2 24.1 k g/m2 [facility] ([facility], [facility]) ID Date Data Source [id number] 02/21/2020 05:56:46 PM [facility] Name Value Range Interpretation Code Description Data Source(s) WEIGHT RECORDED 133 lb 133 lb [facility] Body height Measured 62 in 62 in [facility] TRANSFER FROM [facility] Now Urgent [facility] Now Urgent [facility] Patient Treatment Plan of Care Planned Activity Planned Date Details Description Data Source (s) ulipristal acetate 30 MG Oral Tablet [Claudine] 05/19/2020 12:00:00 AM EST [facility] ([facility]) Etonogestrel 68 MG Drug Implant [Nexplanon] 04/12/2019 12:00:00 AM EST [facility] ([facility])
[2021-01-13] MEDS ORDERED: propofoL 500 MG/50 ML VIAL As Ordered ONE (11:43)
[2021-01-13] MEDS ORDERED: LIDOCAINE 2% 100MG/5ML SDV (FOR ANES.) As Ordered ONE (11:43)
[2021-01-13] MEDS ORDERED: fentaNYL 100 MCG/2 ML INJECTION (J3010) As Ordered ONE (11:44)
[2021-01-13] MEDS ORDERED: propofoL 200 MG/20 ML VIAL As Ordered ONE (12:01)
--- NOTE | 2021-01-13 12:04 | ROOR ---
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 Procedure: Pre-Anesthesia Assessment: - The heart rate, respiratory rate, oxygen saturations, blood pressure, adequacy of pulmonary ventilation, and response to care were monitored throughout the procedure. The Endoscope was introduced through the mouth, and advanced to the second part of duodenum. The upper GI endoscopy was accomplished without difficulty. The patient tolerated the procedure well. Findings: The Z-line was regular and was found 40 cm from the incisors. Localized moderate inflammation characterized by congestion (edema), erosions, erythema and friability was found on the greater curvature of the stomach. Biopsies were taken with a cold forceps for Helicobacter pylori testing. The exam of the duodenum was otherwise normal. Biopsies for histology were taken with a cold forceps in the first portion of the duodenum for evaluation of celiac disease. The exam was otherwise without abnormality. Impression: - Z-line regular, 40 cm from the incisors. - Mucosal changes suspicious for gastritis. Biopsied. - The examination was otherwise normal. - Biopsies were taken with a cold forceps for evaluation of celiac disease. - The examination was otherwise normal. Recommendation: - Patient has a contact number available for emergencies. The signs and symptoms of potential delayed complications were discussed with the patient. Return to normal activities tomorrow. Written discharge instructions were provided to the patient. - High fiber diet. - Discharge patient to home. - Follow an antireflux regimen. - Continue present medications. - Await pathology results. - Telephone GI clinic for pathology results in 1 week. - Return to referring physician. - The findings and recommendations were discussed with the patient. Procedure Code(s): --- Professional --- 80643, Esophagogastroduodenoscopy, flexible, transoral; with biopsy, single or multiple Diagnosis Code(s): --- Professional --- K31.89, Other diseases of stomach and duodenum R14.0, Abdominal distension (gaseous) R19.7, Diarrhea, unspecified CPT copyright 2019 [employer]. All rights reserved. The codes documented in this report are preliminary and upon service delivery consultant review may be revised to meet current compliance requirements. Tor Bee MD Tor Bee MD 01/13/2021 12:04:35 PM Electronically signed by Tor Bee MD Number of Addenda: 0 Note Initiated On: 01/13/2021 11:49 AM Estimated Blood Loss: Estimated blood loss: none.
--- NOTE | 2021-01-13 12:20 | ROOR ---
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 Procedure: Pre-Anesthesia Assessment: - The heart rate, respiratory rate, oxygen saturations, blood pressure, adequacy of pulmonary ventilation, and response to care were monitored throughout the procedure. The Colonoscope was introduced through the anus and advanced to the terminal ileum, with identification of the appendiceal orifice and IC valve. The colonoscopy was performed without difficulty. The patient tolerated the procedure well. The quality of the bowel preparation was good. Findings: The perianal and digital rectal examinations were normal. Internal hemorrhoids were found during retroflexion. The hemorrhoids were small and Grade I (internal hemorrhoids that do not prolapse). No other significant abnormalities were identified in a careful examination of the remainder of the colon. The terminal ileum appeared normal. Biopsies for histology were taken with a cold forceps from the cecum, ascending colon, transverse colon, descending colon and rectosigmoid colon for evaluation of microscopic colitis. The exam was otherwise without abnormality on direct and retroflexion views. Impression: - Internal hemorrhoids. - The examined portion of the ileum was normal. - The examination was otherwise normal on direct and retroflexion views. - Biopsies were taken with a cold forceps from the cecum, ascending colon, transverse colon, descending colon and rectosigmoid colon for evaluation of microscopic colitis. - The exam was otherwise normal to the cecum. Recommendation: - Patient has a contact number available for emergencies. The signs and symptoms of potential delayed complications were discussed with the patient. Return to normal activities tomorrow. Written discharge instructions were provided to the patient. - High fiber diet. - Discharge patient to home. - Continue present medications. - Await pathology results. - Telephone GI clinic for pathology results in 1 week. - Repeat colonoscopy at age 52 for screening purposes. - Return to referring physician. - The findings and recommendations were discussed with the patient. Procedure Code(s): --- Professional --- 67831, Colonoscopy, flexible; with biopsy, single or multiple Diagnosis Code(s): --- Professional --- K64.0, First degree hemorrhoids R19.7, Diarrhea, unspecified R19.4, Change in bowel habit CPT copyright 2019 [employer]. All rights reserved. The codes documented in this report are preliminary and upon auditing coder review may be revised to meet current compliance requirements. Tor Bee MD Tor Bee MD 01/13/2021 12:20:16 PM Electronically signed by Tor Bee MD Number of Addenda: 0 Note Initiated On: 01/13/2021 11:50 AM Estimated Blood Loss: Estimated blood loss: none.
[2021-01-13 12:40] VITALS: BP 122/75
== END 2021-01-13 12:48 | disposition home or self-care (01) ==
LOC: M OPP 10:38
PROVIDERS: ATTEND Internal Medicine Gastroenterology
DX: R19.7 Diarrhea, unspecified (principal); K64.0 First degree hemorrhoids; K31.89 Other diseases of stomach and duodenum; R14.0 Abdominal distension (gaseous); Z79.899 Other long term (current) drug therapy; Z88.8 Allergy status to other drugs, medicaments and biological substances; Z87.891 Personal history of nicotine dependence
CPT/HCPCS: 43239; 45380; 88305; J3010

== ENCOUNTER → 2021-03-11 | Outpatient (CLI) | payer OTHER ==
[~2021-03-11] MED LIST changes: -NS 1,000 ML IV ONE
--- NOTE | 2021-03-11 15:04 | REP ---
INDICATION: PAIN COMPARISON: None. TECHNIQUE: Four views of the left hemithorax. FINDINGS: Four views of the hemithorax demonstrates no acute rib fracture/injury or pathology. IMPRESSION: Normal rib series. <Electronically signed by Erich Costa > 03/11/21 1500
== END ==
LOC: M WUC 13:33
PROVIDERS: ATTEND Internal Medicine
DX: R07.81 Pleurodynia (principal)

== ENCOUNTER → 2021-04-12 | Outpatient (REF) | payer OTHER ==
[2021-04-12 17:33] LABS: PERCENT SATURATION 26.2 % (13.2-45.0)
== END ==
LOC: M LAB REF 16:08
PROVIDERS: ATTEND Internal Medicine
DX: I73.00 Raynaud's syndrome without gangrene (principal); D64.9 Anemia, unspecified

== ENCOUNTER → 2021-04-29 | Outpatient (CLI) | payer OTHER | LOC: M RAD 08:27 | PROVIDERS: ATTEND Internal Medicine | DX: R10.12 Left upper quadrant pain (principal) ==

== ENCOUNTER → 2023-03-21 | Outpatient (REF) | payer OTHER ==
[2023-03-21 14:05] LABS: FERRITIN 39.1 NG/ML (7.3-270.7)
[2023-03-22 16:54] LABS: PERCENT SATURATION 51.8 % (13.2-45.0)
== END ==
LOC: M LAB REF 13:18
PROVIDERS: ATTEND Internal Medicine
DX: D64.9 Anemia, unspecified (principal)

== ENCOUNTER → 2024-10-16 | Outpatient (CLI) | payer OTHER ==
[2024-10-16 14:04] LABS: C REACTIVE PROTEIN QUANTITATIV < 0.50 MG/DL (<1.0)
[2024-10-16 14:05] LABS: IMMUNOGLOBULIN E 181.1 IU/ML (0-378)
[2024-10-16 14:19] LABS: BASO # 0.0 10^3/uL (0.0-0.2); BASO % 0.5 % (0.0-1.0); EOS # 0.1 10^3/uL (0.0-0.5); EOS % 1.6 % (0.0-3.0); LYMPH # 3.1 10^3/uL (1.5-5.0); LYMPH % 34.8 % (24.0-44.0); MONO # 0.6 10^3/uL (0.0-0.8); MONO % 6.2 % (2.0-8.0); NEUTROPHILS # 5.0 10^3/uL (1.5-8.5); NEUTROPHILS % 56.2 % (36.0-66.0); PLATELET COUNT, AUTOMATED 325 10^3/uL (150-450)
[2024-10-17 15:07] LABS: F010-IGE SESAME SEED 0.10 kU/L (<0.10); F013-IGE PEANUT 39.50 kU/L (<0.10); F014-IGE SOYBEAN 0.50 kU/L (<0.10); F017-IGE FILBERT 3.92 kU/L (<0.10); F018-IGE BRAZIL NUT < 0.1 kU/L (<0.10); F020-IGE ALMOND 1.06 kU/L (<0.10); F201-IGE PECAN NUT < 0.10 kU/L (<0.10); F202-IGE CASHEW NUT < 0.10 kU/L (<0.10); F345-IGE MACADAMIA NUT 0.50 kU/L (<0.10); F422-IgE Ara h 2 24.80 kU/L (<0.10); F422-IgE Ara h 3 2.12 kU/L (<0.10); F422-IgE Ara h 6 13.60 kU/L (<0.10); F422-IgE Ara h 8 0.64 kU/L (<0.10); F422-IgE Ara h 9 < 0.10 kU/L (<0.10)
== END ==
LOC: M WUC 12:15
PROVIDERS: ATTEND Nurse Practitioner Family
DX: T78.01XD Anaphylactic reaction due to peanuts, subsequent encounter (principal)